=== PATIENT | male | born 1955 | race Caucasian/White ===

== ENCOUNTER 2016-08-09 19:23 | Inpatient (IN) | payer OTHER ==
[~2016-08-09] VITALS: Ht 182.9 cm; Wt 78.6 kg
[~2016-08-09 19:23] MED LIST: ADVAIR 500/501 DISK IH; ADVAIR HFA120 INHALA IH; ADVAIR HFA120 INHALA PO; ADVIL COLD &1 TABLET PO; ALBUTEROL IH; ALBUTEROL SULF8.5 GM IH; ALLERGY RELIE15.8 ML BOTH NARES; ASCORBIC ACID500 M3 PO; ASPIR-LOW81 MG PO; ASPIRIN325 MG PO; Advair HFA 115/21 IH; BAYER ASPIRIN325 MG PO; BUPROPION XL150 MG PO; CARDIZEM CD,CA240 MG PO; CARDIZEM CD240 MG PO; CARDIZEM120 MG PO; CEFDINIR300 MG PO; CEFTIN500 MG PO; CLEOCIN300 MG PO; COUMADIN,JANTO7.5 MG PO; COUMADIN,JANTOVE1 MG PO; COUMADIN1 MG PO; COUMADIN10 MG PO; CYMBALTA60 MG PO; Cardizem CD,Cartia X PO; Ceftin PO; Colace PO; Coumadin Daily Dose PO; DUONEB 2.5-0.5 M3 ML AEROSOL; DUONEB 2.5-0.5 M3 ML IH; ECOTRIN325 MG PO; ECPIRIN325 M1 PO; ERGOCALCIF50000 UNIT PO; Ecotrin PO; FEROSUL325 MG PO; FERROUS SULFAT324 M1 PO; FLEXERIL10 MG PO; FLONASE16 G1 BOTH NARES; FUROSEMIDE40 MG PO; Flexeril PO; GLIPIZIDE ER2.5 MG PO; GLIPIZIDE XL10 MG PO; GLIPIZIDE10 MG PO; GLUCOPHAGE1000 MG PO; GLUCOTROL XL10 MG PO; GLUCOTROL10 MG PO; Glucophage PO; HYCODAN SYRUP5 ML PO; HYDROCHLOROTH12.5 M1 PO; HYDROCODON-ACE1 EAC7 PO; HYDROCODONE-HO473 ML PO; IPRATR-ALBUTEROL3 ML IH; IPRATROPIUM IH; IRON325 M1 PO; KEFLEX500 MG PO; LASIX40 MG PO; LEVAQUIN750 MG PO; LEVEMIR FL100 UNIT/1 SC; LEVEMIR FL100 UNITS/ PO; LEVEMIR FL100 UNITS/ SC; LEVEMIR100 UNIT/2 SC; LEVOFLOXACIN750 MG PO; LO-DOSE ASPIRIN81 M2 PO; LORTAB 5-325 M1 EACH PO; LYRICA100 MG PO; LYRICA150 MG PO; LYRICA75 MG PO; Lasix PO; MAGNESIUM250 MG PO; METFORMIN HCL1000 MG PO; MYCOSTATIN 100,60 ML PO; Micro-K,K-Tab,K-Dur, PO; Miralax, Glycolax PO; NASONEX17 GM NS; NORCO 5/3251 TABLET PO; NOVOLOG 10100 UNITS/ SC; NOVOLOG PE100 UNITS/ SC; NOVOLOG100 UNIT/2 SQ; NOVOLOG100 UNIT/3 SQ; OMEPRAZOLE40 M1 PO; OMNICEF300 MG PO; POTASSIUM-9999 MG PO; PRAVACHOL40 MG PO; PRAVASTATIN SOD40 MG PO; PREDNISONE10 MG PO; PREDNISONE20 MG PO; PREDNISONE5 MG PO; PRILOSEC40 MG PO; PRINIVIL20 MG PO; PROAIR HFA8.5 GM IH; PROVENTIL HFA6.7 GM IH; PROVENTIL,2.5 MG/0.5 AEROSOL; PROVENTIL,2.5 MG/3 M IH; Pravachol PO; Proventil,Ventolin H IH; QVAR 80 MCG IN7.3 GM IH; RANITIDINE HCL150 M1 PO; RANITIDINE HCL150 MG PO; ROBITUSSIN DM118 ML PO; SALINE SPRAY IH; SPIRIVA1 INHALATI IH; TYLENOL REGULA325 MG PO; VENTOLIN HFA18 GM IH; VITAMIN C500 M1 PO; VITAMIN D35000 UNIT PO; VITAMIN D5000 INTUN PO; Vitamin D PO; WARFARIN SODIUM1 MG PO; WARFARIN SODIUM10 MG PO; WELLBUTRIN XL150 MG PO; XARELTO20 MG PO; Xopenex IH; ZANTAC150 M1 PO; ZANTAC150 MG PO; ZESTORETIC 20-1 EAC1 NG; ZESTORETIC 20-1 EAC1 PO; ZESTORETIC,P1 TABLE1 PO; ZESTORETIC,P1 TABLET PO; ZITHROMAX Z-PA250 MG PO; ZOLOFT100 MG PO; Zestoretic,Prinzide PO; Zoloft PO; predniSONE PO
[2016-08-09 20:27] LABS: HEMATOCRIT 39.2 % (38.0-50.0); MCH 26.6 PG (29.0-34.0); MCHC 28.1 G/DL (30.0-36.0); MCV 94.7 FL (86-99); RBC DIS.WIDTH-CV 15.5 % (11.8-14.6); RBC DIS.WIDTH-SD 53.5 % (39-53); RED BLOOD COUNT 4.14 M/uL (4.00-5.50); WHITE BLOOD COUNT 8.7 K/uL (4.1-10.2)
[2016-08-09 20:35] LABS: CHLORIDE 88 mEq/L (99-109); POTASSIUM 4.8 mEq/L (3.7-5.4); SODIUM 137 mEq/L (136-147)
[2016-08-09 20:37] LABS: GLUCOSE 323 mg/dL (70-99)
[2016-08-09 20:38] LABS: ANION GAP 9 MEQ/L (2-14)
[2016-08-09 20:41] LABS: GFR ESTIMATE (CALCULATED) > 59 mL/min/; UREA NITROGEN (BUN) 22 mg/dL (9-23)
[2016-08-09 20:49] LABS: TROP-I INTERPRETATION NEGATIVE; TROPONIN-I 0.03 ng/mL (0.0-0.30)
[2016-08-09 21:10] LABS: MEAN PLAT.VOLUME 11.3 uM^3 (9.0-12.4); PLATELET COUNT 190 K/uL (156-360)
[2016-08-09 21:11] LABS: PLAT.SUFFICIENCY ADEQUATE
[2016-08-09 22:07] LABS: BASE EXCESS 19.6 mEq/L (-3 to +3); BICARBONATE 49.1 mEq/L (22-26); COMMENTS - BLOOD GASES C+A+; DEVICE NC; METHEMOGLOBIN 1.2 % (0-1.5); O2 FLOW 2 L/MIN; PCO2 87 mm Hg (35-45); PO2 64 mm Hg (80-100); SITE RR; TOTAL RESP RATE 16 resp/min; pH 7.36 (7.35-7.45)
[2016-08-09] MEDS ORDERED: PROVENTIL,2.5 MG/3 M IH (22:09)
[2016-08-09] MEDS ORDERED: LITE COAT ASPI325 M1 PO (22:11)
[2016-08-09] MEDS ORDERED: ZANTAC150 MG PO (22:22)
[2016-08-09] MEDS ORDERED: SERTRALINE HCL50 MG PO (22:23)
[2016-08-10 00:40] VITALS: BP 155/80
[2016-08-10 00:57] LABS: POINT-OF-CARE METER ID UU14174225
[2016-08-10 03:35] LABS: HEMATOCRIT 37.3 % (38.0-50.0); MCH 26.4 PG (29.0-34.0); MCHC 28.2 G/DL (30.0-36.0); MEAN PLAT.VOLUME 11.3 uM^3 (9.0-12.4); PLATELET COUNT 175 K/uL (156-360); RBC DIS.WIDTH-CV 15.6 % (11.8-14.6); RBC DIS.WIDTH-SD 53.5 % (39-53); RED BLOOD COUNT 3.97 M/uL (4.00-5.50); WHITE BLOOD COUNT 7.1 K/uL (4.1-10.2)
[2016-08-10 03:36] VITALS: BP 143/86
[2016-08-10 03:45] LABS: CHLORIDE 88 mEq/L (99-109); POTASSIUM 5.3 mEq/L (3.7-5.4); SODIUM 138 mEq/L (136-147)
[2016-08-10 03:48] LABS: GLUCOSE 380 mg/dL (70-99)
[2016-08-10 03:49] LABS: ANION GAP 10 MEQ/L (2-14)
[2016-08-10 03:50] LABS: TOTAL BILIRUBIN 0.6 mg/dL (0.0-1.0)
[2016-08-10 03:51] LABS: ALKALINE PHOSPHATASE 82 IU/L (3-129); GFR ESTIMATE (CALCULATED) > 59 mL/min/
[2016-08-10 03:52] LABS: UREA NITROGEN (BUN) 23 mg/dL (9-23)
[2016-08-10 03:56] LABS: TROP-I INTERPRETATION NEGATIVE; TROPONIN-I 0.03 ng/mL (0.0-0.30)
[2016-08-10 07:30] VITALS: BP 144/79
[2016-08-10 09:13] LABS: TROP-I INTERPRETATION NEGATIVE; TROPONIN-I 0.02 ng/mL (0.0-0.30)
[2016-08-10 11:22] VITALS: BP 127/64
[2016-08-10 14:11] LABS: INTER. NORMALIZED RATIO 1.2; PROTHROMBIN TIME 12.6 (9.2-11.2); PTT 22.2 (25-32)
[2016-08-10 16:24] VITALS: BP 140/63
[2016-08-10 16:54] LABS: TYPE OF FLUID THORACENTESIS
[2016-08-10 17:05] LABS: POINT-OF-CARE METER ID UU14174225
[2016-08-10 17:21] LABS: BODY FLUID LDH 100 IU/L; BODY FLUID PROTEIN 3.1 G/DL
[2016-08-10 17:36] LABS: BODY FLUID EOSINOPHILS 0 % (0-25); BODY FLUID RBC'S 2000 /MM^3 (0-100); BODY FLUID WBC'S 131 /MM^3 (0-500); COMMENT MANY MESOTHELIAL CELLS SEEN; MONONUCLEAR WBC'S 38 %; POLYNUCLEAR WBC'S 62 % (0-25)
[2016-08-10 17:56] LABS: TROP-I INTERPRETATION NEGATIVE; TROPONIN-I 0.05 ng/mL (0.0-0.30)
[2016-08-10 18:05] LABS: ANION GAP 10 MEQ/L (2-14); CHLORIDE 86 MEQ/L (99-109); CREATINE KINASE 60 IU/L (1-294); GFR ESTIMATE (CALCULATED) > 59 mL/min/; POTASSIUM 4.4 MEQ/L (3.7-5.4); SAMPLE HEMOLYSIS CHECK 0; SAMPLE ICTERIC CHECK 0; SAMPLE LIPEMIA CHECK 0; SODIUM 136 MEQ/L (136-147); UREA NITROGEN (BUN) 28 mg/dL (9-23)
[2016-08-10 18:14] LABS: GLUCOSE 131 mg/dL (70-99)
[2016-08-10 19:40] VITALS: BP 127/74; BP 81/49
[2016-08-10 22:14] LABS: GLUCOSE 34 mg/dL (70-99)
[2016-08-10 23:40] LABS: POINT-OF-CARE METER ID UU14174225
[2016-08-11 04:02] VITALS: BP 121/47
[2016-08-11 06:48] LABS: HEMATOCRIT 32.2 % (38.0-50.0); MCH 26.9 PG (29.0-34.0); MCHC 29.2 G/DL (30.0-36.0); MEAN PLAT.VOLUME 11.4 uM^3 (9.0-12.4); PLATELET COUNT 189 K/uL (156-360); RBC DIS.WIDTH-CV 16.2 % (11.8-14.6); RBC DIS.WIDTH-SD 54.4 % (39-53)
[2016-08-11 07:37] VITALS: BP 115/55
[2016-08-11 07:47] LABS: ANION GAP ND MEQ/L (2-14); CARBON DIOXIDE (BICARBONATE) > 40.0 MEQ/L (20-31); CHLORIDE 87 MEQ/L (99-109); GFR ESTIMATE (CALCULATED) 37 mL/min/; GLUCOSE 83 mg/dL (70-99); POTASSIUM 4.9 MEQ/L (3.7-5.4); SAMPLE HEMOLYSIS CHECK 0; SAMPLE ICTERIC CHECK 0; SAMPLE LIPEMIA CHECK 0; SODIUM 135 MEQ/L (136-147); UREA NITROGEN (BUN) 36 mg/dL (9-23)
[2016-08-11 09:52] LABS: BASE EXCESS 20.3 mEq/L (-3 to +3); BICARBONATE 47.3 mEq/L (22-26); CARBOXY HGB 1.7 % (0-5); METHEMOGLOBIN 1.7 % (0-1.5); PO2 65 mm Hg (80-100); pH 7.45 (7.35-7.45)
[2016-08-11 09:53] LABS: COMMENTS - BLOOD GASES NEG A+C+; DEVICE NC; O2 FLOW 54 L/MIN; PCO2 68 mm Hg (35-45); SITE LR; TOTAL RESP RATE 17 resp/min
[2016-08-11 11:15] VITALS: BP 97/53
[2016-08-11 14:03] LABS: POINT-OF-CARE METER ID UU14174225
[2016-08-11 15:15] VITALS: BP 89/52
[2016-08-11 16:36] LABS: POINT-OF-CARE METER ID UU14174225
[2016-08-11 20:20] VITALS: BP 98/49
[2016-08-11 21:21] LABS: POINT-OF-CARE METER ID UU14174225
[2016-08-11 23:41] VITALS: BP 95/52
[2016-08-12 04:00] VITALS: BP 109/60
[2016-08-12 05:59] LABS: HEMATOCRIT 35.3 % (38.0-50.0); MCH 26.6 PG (29.0-34.0); MCHC 29.2 G/DL (30.0-36.0); MCV 91.2 FL (86-99); MEAN PLAT.VOLUME 11.8 uM^3 (9.0-12.4); PLATELET COUNT 210 K/uL (156-360); RBC DIS.WIDTH-CV 16.3 % (11.8-14.6); RBC DIS.WIDTH-SD 54.5 % (39-53); RED BLOOD COUNT 3.87 M/uL (4.00-5.50); WHITE BLOOD COUNT 9.6 K/uL (4.1-10.2)
[2016-08-12 06:26] LABS: ANION GAP 5 MEQ/L (2-14); CHLORIDE 85 MEQ/L (99-109); SAMPLE HEMOLYSIS CHECK 0; SAMPLE ICTERIC CHECK 0; SAMPLE LIPEMIA CHECK 0; SODIUM 130 MEQ/L (136-147); UREA NITROGEN (BUN) 47 mg/dL (9-23)
[2016-08-12 06:27] LABS: GFR ESTIMATE (CALCULATED) 24 mL/min/; GLUCOSE 262 mg/dL (70-99); POTASSIUM 6.8 MEQ/L (3.7-5.4)
[2016-08-12 08:01] VITALS: BP 116/63
[2016-08-12 11:03] VITALS: BP 106/75
[2016-08-12 12:52] LABS: ANION GAP 8 MEQ/L (2-14); CHLORIDE 84 MEQ/L (99-109); GFR ESTIMATE (CALCULATED) 21 mL/min/; GLUCOSE 299 mg/dL (70-99); POTASSIUM 5.8 MEQ/L (3.7-5.4); SAMPLE HEMOLYSIS CHECK 0; SAMPLE ICTERIC CHECK 0; SAMPLE LIPEMIA CHECK 0; SODIUM 130 MEQ/L (136-147); UREA NITROGEN (BUN) 49 mg/dL (9-23)
[2016-08-12 15:32] VITALS: BP 134/67
[2016-08-12 15:50] LABS: ANION GAP 9 MEQ/L (2-14); CHLORIDE 85 MEQ/L (99-109); GFR ESTIMATE (CALCULATED) 20 mL/min/; GLUCOSE 225 mg/dL (70-99); SAMPLE HEMOLYSIS CHECK 0; SAMPLE ICTERIC CHECK 0; SAMPLE LIPEMIA CHECK 0; SODIUM 131 MEQ/L (136-147); UREA NITROGEN (BUN) 51 mg/dL (9-23)
[2016-08-12 15:51] LABS: POTASSIUM 6.1 MEQ/L (3.7-5.4)
[2016-08-12 16:37] LABS: POINT-OF-CARE METER ID UU14174225
[2016-08-12 19:32] VITALS: BP 106/54
[2016-08-12 21:14] LABS: ANION GAP 10 MEQ/L (2-14); CHLORIDE 85 MEQ/L (99-109); GFR ESTIMATE (CALCULATED) 20 mL/min/; SAMPLE HEMOLYSIS CHECK 0; SAMPLE ICTERIC CHECK 0; SAMPLE LIPEMIA CHECK 0; SODIUM 131 MEQ/L (136-147); UREA NITROGEN (BUN) 52 mg/dL (9-23)
[2016-08-12 21:15] LABS: GLUCOSE 108 mg/dL (70-99)
[2016-08-12 22:05] LABS: POINT-OF-CARE METER ID UU14188625
[2016-08-12 23:01] VITALS: BP 104/56
[2016-08-13] VITALS (16 sets, daily range): BP systolic 77–194; BP diastolic 46–80
[2016-08-13 08:23] LABS: UR CREATININE CONCENTRATION 199.2 MG/DL
[2016-08-13 08:57] LABS: BASE EXCESS 10.5 mEq/L (-3 to +3); CARBOXY HGB 2.3 % (0-5); PO2 76 mm Hg (80-100)
[2016-08-13 08:58] LABS: BICARBONATE 39.9 mEq/L (22-26); DEVICE NC; O2 FLOW 4 L/MIN; PCO2 83 mm Hg (35-45); SITE RR; TOTAL RESP RATE 16 resp/min; pH 7.29 (7.35-7.45)
[2016-08-13 08:59] LABS: COMMENTS - BLOOD GASES A+C+
[2016-08-13 09:04] LABS: EOSINOPHIL (%) 0.3 % (0-5); IMMATURE GRANULOCYTE (%) 0.4 % (0.0-0.7); IMMATURE GRANULOCYTE COUNT 0.1 K/uL; INSTRUMENT ABS NEUTROPHIL CT 9.1 K/uL; LYMPHOCYTE COUNT 1.7 K/uL (1.0-2.8); MCH 27.7 PG (29.0-34.0); MCV 92.4 FL (86-99); MEAN PLAT.VOLUME 11.4 uM^3 (9.0-12.4); MONOCYTE (%) 15.5 % (3-12); NEUTROPHIL (%) 70.4 % (45-76); NEUTROPHIL COUNT 9.1 K/uL (1.8-6.4); PLATELET COUNT 193 K/uL (156-360); RBC DIS.WIDTH-CV 16.1 % (11.8-14.6); RBC DIS.WIDTH-SD 54.8 % (39-53); RED BLOOD COUNT 3.68 M/uL (4.00-5.50)
[2016-08-13 09:06] LABS: WHITE BLOOD COUNT 12.9 K/uL (4.1-10.2)
[2016-08-13 09:25] LABS: ANION GAP 9 MEQ/L (2-14); CHLORIDE 85 MEQ/L (99-109); GFR ESTIMATE (CALCULATED) 16 mL/min/; GLUCOSE 78 mg/dL (70-99); MAGNESIUM 2.1 mg/dl (1.3-2.7); POTASSIUM 4.6 MEQ/L (3.7-5.4); SAMPLE HEMOLYSIS CHECK 0; SAMPLE ICTERIC CHECK 0; SAMPLE LIPEMIA CHECK 0; SODIUM 132 MEQ/L (136-147); UREA NITROGEN (BUN) 55 mg/dL (9-23)
[2016-08-13 11:33] LABS: METH RESISTANT S AUREUS PCR NEGATIVE (NEGATIVE)
[2016-08-13 11:34] LABS: PROBE CHECK PASS; SPECIMEN PROCESSING CONTROL PASS
[2016-08-13 12:11] LABS: POINT-OF-CARE METER ID UU13113803
[2016-08-13 12:15] LABS: BASE EXCESS 13.3 mEq/L (-3 to +3); BICARBONATE 40.6 mEq/L (22-26); CARBOXY HGB 2.3 % (0-5); METHEMOGLOBIN 1.8 % (0-1.5)
[2016-08-13 12:16] LABS: COMMENTS - BLOOD GASES C+A-N/A; DEVICE 980 VENTILATOR; FI02 60 %; MECHANICAL RATE 18 resp/min; MODE AC; PCO2 67 mm Hg (35-45); PEEP 10 CM/H20; PO2 53 mm Hg (80-100); SITE LR; TIDAL VOLUME 500 ML; TOTAL RESP RATE 18 resp/min; pH 7.39 (7.35-7.45)
[2016-08-13 13:50] LABS: EOSINOPHIL (%) 0.1 % (0-5); HEMATOCRIT 33.4 % (38.0-50.0); IMMATURE GRANULOCYTE (%) 0.5 % (0.0-0.7); IMMATURE GRANULOCYTE COUNT 0.1 K/uL; INSTRUMENT ABS NEUTROPHIL CT 10.8 K/uL; LYMPHOCYTE COUNT 0.5 K/uL (1.0-2.8); MCH 27.4 PG (29.0-34.0); MCHC 30.5 G/DL (30.0-36.0); MCV 89.8 FL (86-99); MEAN PLAT.VOLUME 11.1 uM^3 (9.0-12.4); MONOCYTE (%) 5.6 % (3-12); MONOCYTE COUNT 0.7 K/uL (0-0.8); NEUTROPHIL (%) 89.3 % (45-76); NEUTROPHIL COUNT 10.8 K/uL (1.8-6.4); PLATELET COUNT 162 K/uL (156-360); RBC DIS.WIDTH-CV 16.2 % (11.8-14.6); RBC DIS.WIDTH-SD 53.6 % (39-53); RED BLOOD COUNT 3.72 M/uL (4.00-5.50); WHITE BLOOD COUNT 12.1 K/uL (4.1-10.2)
[2016-08-13 14:17] LABS: ANION GAP 11 MEQ/L (2-14); CHLORIDE 85 MEQ/L (99-109); GFR ESTIMATE (CALCULATED) 16 mL/min/; GLUCOSE 142 mg/dL (70-99); POTASSIUM 4.8 MEQ/L (3.7-5.4); SAMPLE HEMOLYSIS CHECK 0; SAMPLE ICTERIC CHECK 0; SAMPLE LIPEMIA CHECK 0; SODIUM 131 MEQ/L (136-147); UREA NITROGEN (BUN) 56 mg/dL (9-23)
[2016-08-13 15:35] LABS: EOSINOPHIL (%) 0.1 % (0-5); HEMATOCRIT 32.5 % (38.0-50.0); IMMATURE GRANULOCYTE (%) 0.5 % (0.0-0.7); IMMATURE GRANULOCYTE COUNT 0.1 K/uL; INSTRUMENT ABS NEUTROPHIL CT 9.9 K/uL; LYMPHOCYTE COUNT 0.5 K/uL (1.0-2.8); MCH 26.7 PG (29.0-34.0); MCHC 30.2 G/DL (30.0-36.0); MCV 88.6 FL (86-99); MEAN PLAT.VOLUME 11.6 uM^3 (9.0-12.4); MONOCYTE (%) 4.2 % (3-12); MONOCYTE COUNT 0.5 K/uL (0-0.8); NEUTROPHIL (%) 90.5 % (45-76); NEUTROPHIL COUNT 9.9 K/uL (1.8-6.4); PLATELET COUNT 151 K/uL (156-360); RBC DIS.WIDTH-CV 15.9 % (11.8-14.6); RBC DIS.WIDTH-SD 51.7 % (39-53); RED BLOOD COUNT 3.67 M/uL (4.00-5.50); WHITE BLOOD COUNT 10.9 K/uL (4.1-10.2)
[2016-08-13 15:46] LABS: INTER. NORMALIZED RATIO 1.2; PROTHROMBIN TIME 12.5 (9.2-11.2); PTT 26.4 (25-32)
[2016-08-13 17:52] LABS: POINT-OF-CARE METER ID UU13113803
[2016-08-13 18:17] LABS: BASE EXCESS 11.2 mEq/L (-3 to +3); BICARBONATE 36.8 mEq/L (22-26); CARBOXY HGB 1.7 % (0-5); METHEMOGLOBIN 1.4 % (0-1.5); PCO2 53 mm Hg (35-45); PO2 72 mm Hg (80-100); SITE LEFT A LINE; pH 7.45 (7.35-7.45)
[2016-08-13 18:18] LABS: EOSINOPHIL (%) 0.1 % (0-5); HEMATOCRIT 32.9 % (38.0-50.0); IMMATURE GRANULOCYTE (%) 0.5 % (0.0-0.7); IMMATURE GRANULOCYTE COUNT 0.1 K/uL; INSTRUMENT ABS NEUTROPHIL CT 8.9 K/uL; LYMPHOCYTE COUNT 0.5 K/uL (1.0-2.8); MCH 27.4 PG (29.0-34.0); MCHC 31.3 G/DL (30.0-36.0); MCV 87.5 FL (86-99); MEAN PLAT.VOLUME 10.8 uM^3 (9.0-12.4); MONOCYTE (%) 3.2 % (3-12); MONOCYTE COUNT 0.3 K/uL (0-0.8); NEUTROPHIL (%) 91.4 % (45-76); NEUTROPHIL COUNT 8.9 K/uL (1.8-6.4); PLATELET COUNT 136 K/uL (156-360); RBC DIS.WIDTH-CV 15.9 % (11.8-14.6); RBC DIS.WIDTH-SD 51.3 % (39-53); RED BLOOD COUNT 3.76 M/uL (4.00-5.50); WHITE BLOOD COUNT 9.7 K/uL (4.1-10.2)
[2016-08-13 18:18] LABS: DEVICE 980; FI02 60 %; MECHANICAL RATE 18 resp/min; MODE A/C; PEEP 12 CM/H20; TIDAL VOLUME 500 ML
[2016-08-13 18:43] LABS: TROP-I INTERPRETATION INDETERMINATE; TROPONIN-I 0.41 ng/mL (0.0-0.30)
[2016-08-13 18:44] LABS: ANION GAP 11 MEQ/L (2-14); CHLORIDE 89 MEQ/L (99-109); GFR ESTIMATE (CALCULATED) 19 mL/min/; GLUCOSE 116 mg/dL (70-99); POTASSIUM 4.8 MEQ/L (3.7-5.4); SAMPLE HEMOLYSIS CHECK 0; SAMPLE ICTERIC CHECK 0; SAMPLE LIPEMIA CHECK 0; SODIUM 131 MEQ/L (136-147); UREA NITROGEN (BUN) 52 mg/dL (9-23)
[2016-08-14 00:24] LABS: EOSINOPHIL (%) 0 % (0-5); HEMATOCRIT 35.5 % (38.0-50.0); IMMATURE GRANULOCYTE (%) 0.7 % (0.0-0.7); IMMATURE GRANULOCYTE COUNT 0.1 K/uL; INSTRUMENT ABS NEUTROPHIL CT 8.4 K/uL; LYMPHOCYTE COUNT 0.5 K/uL (1.0-2.8); MCH 26.6 PG (29.0-34.0); MCHC 30.4 G/DL (30.0-36.0); MCV 87.4 FL (86-99); MEAN PLAT.VOLUME 11.4 uM^3 (9.0-12.4); MONOCYTE (%) 2.4 % (3-12); MONOCYTE COUNT 0.2 K/uL (0-0.8); NEUTROPHIL (%) 91.9 % (45-76); NEUTROPHIL COUNT 8.4 K/uL (1.8-6.4); PLATELET COUNT 162 K/uL (156-360); RBC DIS.WIDTH-CV 15.9 % (11.8-14.6); RBC DIS.WIDTH-SD 51.5 % (39-53); RED BLOOD COUNT 4.06 M/uL (4.00-5.50); WHITE BLOOD COUNT 9.1 K/uL (4.1-10.2)
[2016-08-14 00:26] LABS: POINT-OF-CARE METER ID UU13113803
[2016-08-14 00:36] LABS: CHLORIDE 95 mEq/L (99-109); POTASSIUM 5.1 mEq/L (3.7-5.4); SODIUM 134 mEq/L (136-147)
[2016-08-14 00:37] LABS: MAGNESIUM 2.1 mg/dL (1.3-2.7)
[2016-08-14 00:39] LABS: GLUCOSE 110 mg/dL (70-99)
[2016-08-14 00:40] LABS: ANION GAP 12 MEQ/L (2-14)
[2016-08-14 00:42] LABS: GFR ESTIMATE (CALCULATED) 26 mL/min/
[2016-08-14 00:43] LABS: UREA NITROGEN (BUN) 41 mg/dL (9-23)
[2016-08-14 00:46] LABS: TROP-I INTERPRETATION INDETERMINATE; TROPONIN-I 0.36 ng/mL (0.0-0.30)
[2016-08-14 05:51] LABS: POINT-OF-CARE METER ID UU13113803
[2016-08-14 06:24] LABS: EOSINOPHIL (%) 0 % (0-5); HEMATOCRIT 32.4 % (38.0-50.0); IMMATURE GRANULOCYTE (%) 0.5 % (0.0-0.7); INSTRUMENT ABS NEUTROPHIL CT 7.6 K/uL; LYMPHOCYTE COUNT 0.5 K/uL (1.0-2.8); MCHC 31.2 G/DL (30.0-36.0); MCV 86.6 FL (86-99); MEAN PLAT.VOLUME 11.7 uM^3 (9.0-12.4); MONOCYTE (%) 4.7 % (3-12); MONOCYTE COUNT 0.4 K/uL (0-0.8); NEUTROPHIL (%) 88.7 % (45-76); NEUTROPHIL COUNT 7.6 K/uL (1.8-6.4); PLATELET COUNT 181 K/uL (156-360); RBC DIS.WIDTH-CV 16.1 % (11.8-14.6); RBC DIS.WIDTH-SD 51.3 % (39-53); RED BLOOD COUNT 3.74 M/uL (4.00-5.50); WHITE BLOOD COUNT 8.6 K/uL (4.1-10.2)
[2016-08-14 06:53] LABS: TROP-I INTERPRETATION NEGATIVE; TROPONIN-I 0.25 ng/mL (0.0-0.30)
[2016-08-14 08:10] LABS: ANION GAP 9 MEQ/L (2-14); CHLORIDE 96 MEQ/L (99-109); MAGNESIUM 1.9 mg/dl (1.3-2.7); POTASSIUM 4.4 MEQ/L (3.7-5.4); SAMPLE HEMOLYSIS CHECK 0; SAMPLE ICTERIC CHECK 0; SAMPLE LIPEMIA CHECK 0; SODIUM 134 MEQ/L (136-147)
[2016-08-14 08:17] LABS: GFR ESTIMATE (CALCULATED) 35 mL/min/; GLUCOSE 115 mg/dL (70-99); UREA NITROGEN (BUN) 34 mg/dL (9-23)
[2016-08-14 12:10] LABS: EOSINOPHIL (%) 0 % (0-5); HEMATOCRIT 33.7 % (38.0-50.0); IMMATURE GRANULOCYTE (%) 0.4 % (0.0-0.7); IMMATURE GRANULOCYTE COUNT 0.1 K/uL; INSTRUMENT ABS NEUTROPHIL CT 10.5 K/uL; LYMPHOCYTE COUNT 0.4 K/uL (1.0-2.8); MCH 26.6 PG (29.0-34.0); MCV 88.7 FL (86-99); MEAN PLAT.VOLUME 10.8 uM^3 (9.0-12.4); MONOCYTE (%) 6.4 % (3-12); MONOCYTE COUNT 0.8 K/uL (0-0.8); NEUTROPHIL (%) 89.5 % (45-76); NEUTROPHIL COUNT 10.5 K/uL (1.8-6.4); PLATELET COUNT 179 K/uL (156-360); RBC DIS.WIDTH-CV 15.9 % (11.8-14.6)
[2016-08-14 12:14] LABS: WHITE BLOOD COUNT 11.8 K/uL (4.1-10.2)
[2016-08-14 12:18] LABS: POINT-OF-CARE METER ID UU13113803
[2016-08-14 12:33] LABS: TROP-I INTERPRETATION NEGATIVE; TROPONIN-I 0.26 ng/mL (0.0-0.30)
[2016-08-14 12:35] LABS: ANION GAP 10 MEQ/L (2-14); CHLORIDE 95 MEQ/L (99-109); GFR ESTIMATE (CALCULATED) 39 mL/min/; GLUCOSE 131 mg/dL (70-99); POTASSIUM 4.6 MEQ/L (3.7-5.4); SAMPLE HEMOLYSIS CHECK 0; SAMPLE ICTERIC CHECK 0; SAMPLE LIPEMIA CHECK 0; SODIUM 133 MEQ/L (136-147); UREA NITROGEN (BUN) 30 mg/dL (9-23)
[2016-08-14 12:40] LABS: MAGNESIUM 2.3 mg/dl (1.3-2.7)
[2016-08-14 18:25] LABS: EOSINOPHIL (%) 0 % (0-5); HEMATOCRIT 33.5 % (38.0-50.0); IMMATURE GRANULOCYTE (%) 0.6 % (0.0-0.7); IMMATURE GRANULOCYTE COUNT 0.1 K/uL; INSTRUMENT ABS NEUTROPHIL CT 11.7 K/uL; LYMPHOCYTE COUNT 0.5 K/uL (1.0-2.8); MCHC 30.1 G/DL (30.0-36.0); MCV 89.6 FL (86-99); MEAN PLAT.VOLUME 11.8 uM^3 (9.0-12.4); MONOCYTE (%) 6.7 % (3-12); MONOCYTE COUNT 0.9 K/uL (0-0.8); NEUTROPHIL (%) 89.2 % (45-76); NEUTROPHIL COUNT 11.7 K/uL (1.8-6.4); PLATELET COUNT 196 K/uL (156-360); RBC DIS.WIDTH-CV 16.3 % (11.8-14.6); RBC DIS.WIDTH-SD 53.6 % (39-53); RED BLOOD COUNT 3.74 M/uL (4.00-5.50); WHITE BLOOD COUNT 13.1 K/uL (4.1-10.2)
[2016-08-14 18:50] LABS: ANION GAP 7 MEQ/L (2-14); CHLORIDE 97 MEQ/L (99-109); GFR ESTIMATE (CALCULATED) 44 mL/min/; GLUCOSE 137 mg/dL (70-99); MAGNESIUM 2.3 mg/dl (1.3-2.7); POTASSIUM 5.3 MEQ/L (3.7-5.4); SAMPLE HEMOLYSIS CHECK 1; SAMPLE ICTERIC CHECK 0; SAMPLE LIPEMIA CHECK 0; SODIUM 133 MEQ/L (136-147); UREA NITROGEN (BUN) 27 mg/dL (9-23)
[2016-08-15 00:49] LABS: EOSINOPHIL (%) 0 % (0-5); HEMATOCRIT 34.7 % (38.0-50.0); IMMATURE GRANULOCYTE (%) 0.5 % (0.0-0.7); IMMATURE GRANULOCYTE COUNT 0.1 K/uL; INSTRUMENT ABS NEUTROPHIL CT 11.4 K/uL; LYMPHOCYTE COUNT 0.4 K/uL (1.0-2.8); MCH 26.8 PG (29.0-34.0); MCHC 29.7 G/DL (30.0-36.0); MCV 90.1 FL (86-99); MEAN PLAT.VOLUME 11.2 uM^3 (9.0-12.4); MONOCYTE (%) 7.1 % (3-12); MONOCYTE COUNT 0.9 K/uL (0-0.8); NEUTROPHIL COUNT 11.4 K/uL (1.8-6.4); PLATELET COUNT 179 K/uL (156-360); RBC DIS.WIDTH-CV 16.2 % (11.8-14.6); RBC DIS.WIDTH-SD 53.7 % (39-53); RED BLOOD COUNT 3.85 M/uL (4.00-5.50); WHITE BLOOD COUNT 12.8 K/uL (4.1-10.2)
[2016-08-15 00:58] LABS: CHLORIDE 101 mEq/L (99-109); MAGNESIUM 2.1 mg/dL (1.3-2.7); POTASSIUM 4.7 mEq/L (3.7-5.4); SODIUM 136 mEq/L (136-147)
[2016-08-15 01:00] LABS: GLUCOSE 180 mg/dL (70-99)
[2016-08-15 01:02] LABS: ANION GAP 11 MEQ/L (2-14); TOTAL BILIRUBIN 0.5 mg/dL (0.0-1.0)
[2016-08-15 01:04] LABS: ALKALINE PHOSPHATASE 63 IU/L (3-129); GFR ESTIMATE (CALCULATED) 47 mL/min/
[2016-08-15 01:05] LABS: UREA NITROGEN (BUN) 26 mg/dL (9-23)
[2016-08-15 01:06] LABS: DIRECT BILIRUBIN 0.3 mg/dL (0.0-0.3)
[2016-08-15 05:33] LABS: POINT-OF-CARE METER ID UU13113803
[2016-08-15 06:46] LABS: EOSINOPHIL (%) 0 % (0-5); HEMATOCRIT 33.7 % (38.0-50.0); IMMATURE GRANULOCYTE (%) 0.6 % (0.0-0.7); IMMATURE GRANULOCYTE COUNT 0.1 K/uL; INSTRUMENT ABS NEUTROPHIL CT 11.6 K/uL; LYMPHOCYTE COUNT 0.5 K/uL (1.0-2.8); MCHC 29.4 G/DL (30.0-36.0); MCV 92.1 FL (86-99); MEAN PLAT.VOLUME 11.7 uM^3 (9.0-12.4); MONOCYTE (%) 7.6 % (3-12); NEUTROPHIL (%) 88.1 % (45-76); NEUTROPHIL COUNT 11.6 K/uL (1.8-6.4); PLATELET COUNT 180 K/uL (156-360); RBC DIS.WIDTH-CV 16.3 % (11.8-14.6); RBC DIS.WIDTH-SD 55.5 % (39-53); RED BLOOD COUNT 3.66 M/uL (4.00-5.50); WHITE BLOOD COUNT 13.1 K/uL (4.1-10.2)
[2016-08-15 07:19] LABS: ANION GAP 10 MEQ/L (2-14); CHLORIDE 98 MEQ/L (99-109); GFR ESTIMATE (CALCULATED) 55 mL/min/; GLUCOSE 180 mg/dL (70-99); MAGNESIUM 2.2 mg/dl (1.3-2.7); POTASSIUM 4.7 MEQ/L (3.7-5.4); SAMPLE HEMOLYSIS CHECK 0; SAMPLE ICTERIC CHECK 0; SAMPLE LIPEMIA CHECK 0; SODIUM 134 MEQ/L (136-147); UREA NITROGEN (BUN) 24 mg/dL (9-23)
[2016-08-15 09:00] VITALS: BP 110/96
[2016-08-15 11:43] LABS: METHEMOGLOBIN 1.2 % (0-1.5); PO2 74 mm Hg (80-100)
[2016-08-15 11:44] LABS: BICARBONATE 25.1 mEq/L (22-26); COMMENTS - BLOOD GASES C+ANA; DEVICE 980 PB; FI02 30 %; MODE TC; PCO2 60 mm Hg (35-45); PEEP 5 CM/H20; SITE ALINE; TOTAL RESP RATE 10 resp/min; pH 7.23 (7.35-7.45)
[2016-08-15 12:10] LABS: POINT-OF-CARE METER ID UU13113803
[2016-08-15 12:22] LABS: EOSINOPHIL (%) 0 % (0-5); HEMATOCRIT 33.6 % (38.0-50.0); IMMATURE GRANULOCYTE (%) 0.7 % (0.0-0.7); IMMATURE GRANULOCYTE COUNT 0.1 K/uL; INSTRUMENT ABS NEUTROPHIL CT 11.4 K/uL; LYMPHOCYTE COUNT 0.6 K/uL (1.0-2.8); MCH 27.4 PG (29.0-34.0); MCHC 29.8 G/DL (30.0-36.0); MCV 92.1 FL (86-99); MEAN PLAT.VOLUME 11.5 uM^3 (9.0-12.4); MONOCYTE (%) 9.5 % (3-12); MONOCYTE COUNT 1.3 K/uL (0-0.8); NEUTROPHIL (%) 85.4 % (45-76); NEUTROPHIL COUNT 11.4 K/uL (1.8-6.4); PLATELET COUNT 190 K/uL (156-360); RBC DIS.WIDTH-CV 16.3 % (11.8-14.6); RBC DIS.WIDTH-SD 55.6 % (39-53); RED BLOOD COUNT 3.65 M/uL (4.00-5.50); WHITE BLOOD COUNT 13.4 K/uL (4.1-10.2)
[2016-08-15 12:52] LABS: ANION GAP 8 MEQ/L (2-14); CHLORIDE 100 MEQ/L (99-109); GFR ESTIMATE (CALCULATED) > 59 mL/min/; GLUCOSE 194 mg/dL (70-99); MAGNESIUM 2.3 mg/dl (1.3-2.7); POTASSIUM 4.6 MEQ/L (3.7-5.4); SAMPLE HEMOLYSIS CHECK 0; SAMPLE ICTERIC CHECK 0; SAMPLE LIPEMIA CHECK 0; SODIUM 133 MEQ/L (136-147); UREA NITROGEN (BUN) 24 mg/dL (9-23)
[2016-08-15 18:03] LABS: EOSINOPHIL (%) 0 % (0-5); HEMATOCRIT 33.6 % (38.0-50.0); IMMATURE GRANULOCYTE (%) 0.6 % (0.0-0.7); IMMATURE GRANULOCYTE COUNT 0.1 K/uL; INSTRUMENT ABS NEUTROPHIL CT 10.6 K/uL; LYMPHOCYTE COUNT 0.5 K/uL (1.0-2.8); MCH 26.2 PG (29.0-34.0); MCHC 28.9 G/DL (30.0-36.0); MCV 90.8 FL (86-99); MEAN PLAT.VOLUME 11.4 uM^3 (9.0-12.4); MONOCYTE (%) 8.5 % (3-12); NEUTROPHIL COUNT 10.6 K/uL (1.8-6.4); PLATELET COUNT 171 K/uL (156-360); RBC DIS.WIDTH-CV 16.3 % (11.8-14.6); RBC DIS.WIDTH-SD 54.1 % (39-53); WHITE BLOOD COUNT 12.2 K/uL (4.1-10.2)
[2016-08-15 18:16] LABS: CHLORIDE 104 mEq/L (99-109); POTASSIUM 4.7 mEq/L (3.7-5.4); SODIUM 137 mEq/L (136-147)
[2016-08-15 18:17] LABS: MAGNESIUM 2.3 mg/dL (1.3-2.7)
[2016-08-15 18:18] LABS: GLUCOSE 197 mg/dL (70-99)
[2016-08-15 18:19] LABS: ANION GAP 11 MEQ/L (2-14)
[2016-08-15 18:22] LABS: GFR ESTIMATE (CALCULATED) > 59 mL/min/; POINT-OF-CARE METER ID UU13113803
[2016-08-15 18:23] LABS: UREA NITROGEN (BUN) 25 mg/dL (9-23)
[2016-08-15 21:00] VITALS: BP 118/68
[2016-08-16 00:33] LABS: EOSINOPHIL (%) 0 % (0-5); IMMATURE GRANULOCYTE (%) 0.8 % (0.0-0.7); IMMATURE GRANULOCYTE COUNT 0.1 K/uL; INSTRUMENT ABS NEUTROPHIL CT 11.3 K/uL; LYMPHOCYTE COUNT 0.5 K/uL (1.0-2.8); MCH 26.7 PG (29.0-34.0); MCHC 29.4 G/DL (30.0-36.0); MCV 90.7 FL (86-99); MONOCYTE (%) 8.5 % (3-12); MONOCYTE COUNT 1.1 K/uL (0-0.8); NEUTROPHIL (%) 86.7 % (45-76); NEUTROPHIL COUNT 11.3 K/uL (1.8-6.4); PLATELET COUNT 168 K/uL (156-360); RBC DIS.WIDTH-CV 16.2 % (11.8-14.6); RBC DIS.WIDTH-SD 53.1 % (39-53); RED BLOOD COUNT 3.75 M/uL (4.00-5.50); WHITE BLOOD COUNT 13.1 K/uL (4.1-10.2)
[2016-08-16 00:45] LABS: CHLORIDE 104 mEq/L (99-109); POTASSIUM 4.7 mEq/L (3.7-5.4); SODIUM 137 mEq/L (136-147)
[2016-08-16 00:46] LABS: MAGNESIUM 2.4 mg/dL (1.3-2.7)
[2016-08-16 00:47] LABS: GLUCOSE 190 mg/dL (70-99)
[2016-08-16 00:48] LABS: ANION GAP 11 MEQ/L (2-14)
[2016-08-16 00:49] LABS: POINT-OF-CARE METER ID UU14174217; POINT-OF-CARE USER ID RADDRS44
[2016-08-16 00:51] LABS: GFR ESTIMATE (CALCULATED) > 59 mL/min/
[2016-08-16 00:52] LABS: UREA NITROGEN (BUN) 26 mg/dL (9-23)
[2016-08-16 05:31] LABS: CHLORIDE 106 mEq/L (99-109); POTASSIUM 4.8 mEq/L (3.7-5.4); SODIUM 138 mEq/L (136-147)
[2016-08-16 05:32] LABS: MAGNESIUM 2.6 mg/dL (1.3-2.7)
[2016-08-16 05:33] LABS: EOSINOPHIL (%) 0 % (0-5); IMMATURE GRANULOCYTE (%) 0.6 % (0.0-0.7); IMMATURE GRANULOCYTE COUNT 0.1 K/uL; INSTRUMENT ABS NEUTROPHIL CT 12.1 K/uL; LYMPHOCYTE COUNT 0.6 K/uL (1.0-2.8); MCH 26.8 PG (29.0-34.0); MCHC 29.4 G/DL (30.0-36.0); MCV 90.9 FL (86-99); MEAN PLAT.VOLUME 11.4 uM^3 (9.0-12.4); MONOCYTE (%) 8.9 % (3-12); MONOCYTE COUNT 1.2 K/uL (0-0.8); NEUTROPHIL (%) 86.2 % (45-76); NEUTROPHIL COUNT 12.1 K/uL (1.8-6.4); PLATELET COUNT 198 K/uL (156-360); RBC DIS.WIDTH-CV 16.3 % (11.8-14.6); RBC DIS.WIDTH-SD 54.8 % (39-53); RED BLOOD COUNT 3.85 M/uL (4.00-5.50)
[2016-08-16 06:00] LABS: POINT-OF-CARE USER ID RADDRS44
[2016-08-16 07:19] LABS: GFR ESTIMATE (CALCULATED) > 59 mL/min/; GLUCOSE 182 mg/dL (70-99); UREA NITROGEN (BUN) 25 mg/dL (9-23)
[2016-08-16 09:46] LABS: BASE EXCESS -2.3 mEq/L (-3 to +3); BICARBONATE 25.7 mEq/L (22-26); CARBOXY HGB 2.1 % (0-5); METHEMOGLOBIN 1.5 % (0-1.5); PCO2 60 mm Hg (35-45); PO2 77 mm Hg (80-100)
[2016-08-16 09:47] LABS: COMMENTS - BLOOD GASES C+ANA; SITE ALINE; pH 7.24 (7.35-7.45)
[2016-08-16 09:48] LABS: DEVICE 980 PB; FI02 30 %; MODE TC; TOTAL RESP RATE 11 resp/min
[2016-08-16 11:00] VITALS: BP 151/77
[2016-08-16 13:50] LABS: EOSINOPHIL (%) 0.1 % (0-5); HEMATOCRIT 34.1 % (38.0-50.0); IMMATURE GRANULOCYTE (%) 0.4 % (0.0-0.7); IMMATURE GRANULOCYTE COUNT 0.1 K/uL; INSTRUMENT ABS NEUTROPHIL CT 11.1 K/uL; LYMPHOCYTE COUNT 0.5 K/uL (1.0-2.8); MCH 26.8 PG (29.0-34.0); MCV 92.4 FL (86-99); MEAN PLAT.VOLUME 11.3 uM^3 (9.0-12.4); MONOCYTE (%) 8.7 % (3-12); MONOCYTE COUNT 1.1 K/uL (0-0.8); NEUTROPHIL COUNT 11.1 K/uL (1.8-6.4); PLATELET COUNT 161 K/uL (156-360); RBC DIS.WIDTH-CV 16.4 % (11.8-14.6); RBC DIS.WIDTH-SD 55.6 % (39-53); RED BLOOD COUNT 3.69 M/uL (4.00-5.50); WHITE BLOOD COUNT 12.8 K/uL (4.1-10.2)
[2016-08-16 14:20] LABS: ANION GAP 11 MEQ/L (2-14); CHLORIDE 102 MEQ/L (99-109); GFR ESTIMATE (CALCULATED) > 59 mL/min/; GLUCOSE 206 mg/dL (70-99); MAGNESIUM 2.6 mg/dl (1.3-2.7); SAMPLE HEMOLYSIS CHECK 0; SAMPLE ICTERIC CHECK 0; SAMPLE LIPEMIA CHECK 0; SODIUM 135 MEQ/L (136-147); UREA NITROGEN (BUN) 27 mg/dL (9-23)
[2016-08-16 17:00] LABS: BASE EXCESS -1.1 mEq/L (-3 to +3); BICARBONATE 24.8 mEq/L (22-26); CARBOXY HGB 2.1 % (0-5); METHEMOGLOBIN 1.4 % (0-1.5); PO2 91 mm Hg (80-100)
[2016-08-16 17:01] LABS: COMMENTS - BLOOD GASES C+ANA; FI02 30 %; PCO2 46 mm Hg (35-45); SITE ALINE; pH 7.34 (7.35-7.45)
[2016-08-16 17:02] LABS: DEVICE 980 PB; INSPIRATION TIME 0.8 seconds; MECHANICAL RATE 14 resp/min; MODE ACPC; PEEP 5 CM/H20; PRESSURE CONTROL VENTILATION 15 CM H20; TOTAL RESP RATE 18 resp/min
[2016-08-16 18:06] LABS: EOSINOPHIL (%) 0.2 % (0-5); HEMATOCRIT 32.8 % (38.0-50.0); IMMATURE GRANULOCYTE (%) 0.4 % (0.0-0.7); IMMATURE GRANULOCYTE COUNT 0.1 K/uL; INSTRUMENT ABS NEUTROPHIL CT 9.6 K/uL; LYMPHOCYTE COUNT 0.9 K/uL (1.0-2.8); MCH 27.2 PG (29.0-34.0); MCHC 29.9 G/DL (30.0-36.0); MCV 91.1 FL (86-99); MEAN PLAT.VOLUME 11.3 uM^3 (9.0-12.4); MONOCYTE (%) 10.5 % (3-12); MONOCYTE COUNT 1.3 K/uL (0-0.8); NEUTROPHIL (%) 80.9 % (45-76); NEUTROPHIL COUNT 9.6 K/uL (1.8-6.4); PLATELET COUNT 162 K/uL (156-360); RBC DIS.WIDTH-CV 16.3 % (11.8-14.6); RBC DIS.WIDTH-SD 55.4 % (39-53); WHITE BLOOD COUNT 11.9 K/uL (4.1-10.2)
[2016-08-16 18:08] LABS: POINT-OF-CARE METER ID UU14162636
[2016-08-16 18:31] LABS: ANION GAP 10 MEQ/L (2-14); CHLORIDE 102 MEQ/L (99-109); GFR ESTIMATE (CALCULATED) > 59 mL/min/; GLUCOSE 285 mg/dL (70-99); MAGNESIUM 2.5 mg/dl (1.3-2.7); POTASSIUM 4.8 MEQ/L (3.7-5.4); SAMPLE HEMOLYSIS CHECK 0; SAMPLE ICTERIC CHECK 0; SAMPLE LIPEMIA CHECK 0; SODIUM 134 MEQ/L (136-147); UREA NITROGEN (BUN) 30 mg/dL (9-23)
[2016-08-17 00:51] LABS: HEMATOCRIT 33.3 % (38.0-50.0); MCH 26.5 PG (29.0-34.0); MCHC 29.4 G/DL (30.0-36.0); MEAN PLAT.VOLUME 11.6 uM^3 (9.0-12.4); PLATELET COUNT 156 K/uL (156-360); RBC DIS.WIDTH-CV 16.4 % (11.8-14.6); RBC DIS.WIDTH-SD 53.6 % (39-53); WHITE BLOOD COUNT 11.8 K/uL (4.1-10.2)
[2016-08-17 00:57] LABS: CHLORIDE 106 mEq/L (99-109); POTASSIUM 4.5 mEq/L (3.7-5.4)
[2016-08-17 00:58] LABS: SODIUM 136 mEq/L (136-147)
[2016-08-17 01:00] LABS: GLUCOSE 220 mg/dL (70-99)
[2016-08-17 01:01] LABS: ANION GAP 8 MEQ/L (2-14)
[2016-08-17 01:04] LABS: UREA NITROGEN (BUN) 27 mg/dL (9-23)
[2016-08-17 01:15] LABS: MAGNESIUM 2.2 mg/dL (1.3-2.7)
[2016-08-17 01:25] LABS: GFR ESTIMATE (CALCULATED) > 59 mL/min/
[2016-08-17 06:36] LABS: POINT-OF-CARE METER ID UU14162636
[2016-08-17 06:50] LABS: CHLORIDE 107 mEq/L (99-109); POTASSIUM 4.8 mEq/L (3.7-5.4); SODIUM 137 mEq/L (136-147)
[2016-08-17 06:51] LABS: MAGNESIUM 2.4 mg/dL (1.3-2.7)
[2016-08-17 06:52] LABS: GLUCOSE 288 mg/dL (70-99)
[2016-08-17 06:53] LABS: ANION GAP 9 MEQ/L (2-14)
[2016-08-17 06:56] LABS: GFR ESTIMATE (CALCULATED) > 59 mL/min/
[2016-08-17 06:57] LABS: UREA NITROGEN (BUN) 27 mg/dL (9-23)
[2016-08-17 07:13] LABS: HEMATOCRIT 33.3 % (38.0-50.0); MCH 26.7 PG (29.0-34.0); MCHC 29.4 G/DL (30.0-36.0); MCV 90.7 FL (86-99); PLATELET COUNT 140 K/uL (156-360); RBC DIS.WIDTH-CV 16.3 % (11.8-14.6); RBC DIS.WIDTH-SD 54.4 % (39-53); RED BLOOD COUNT 3.67 M/uL (4.00-5.50); WHITE BLOOD COUNT 10.3 K/uL (4.1-10.2)
[2016-08-17 09:18] LABS: BASE EXCESS -1.4 mEq/L (-3 to +3); BICARBONATE 25.2 mEq/L (22-26); CARBOXY HGB 2.1 % (0-5); COMMENTS - BLOOD GASES NAC+; DEVICE PB 980; FI02 30 %; METHEMOGLOBIN 1.7 % (0-1.5); MODE SPONT TC; PCO2 50 mm Hg (35-45); PEEP 5 CM/H20; PO2 97 mm Hg (80-100); SITE ALINE; TOTAL RESP RATE 15 resp/min; pH 7.31 (7.35-7.45)
[2016-08-17 12:06] LABS: POINT-OF-CARE METER ID UU13113731
[2016-08-17 12:10] LABS: HEMATOCRIT 34.4 % (38.0-50.0); MCH 26.6 PG (29.0-34.0); MCHC 29.4 G/DL (30.0-36.0); MCV 90.8 FL (86-99); MEAN PLAT.VOLUME 11.3 uM^3 (9.0-12.4); PLATELET COUNT 138 K/uL (156-360); RBC DIS.WIDTH-CV 16.3 % (11.8-14.6); RBC DIS.WIDTH-SD 54.9 % (39-53); RED BLOOD COUNT 3.79 M/uL (4.00-5.50); WHITE BLOOD COUNT 10.3 K/uL (4.1-10.2)
[2016-08-17 12:34] LABS: ANION GAP 9 MEQ/L (2-14); CHLORIDE 105 MEQ/L (99-109); GFR ESTIMATE (CALCULATED) > 59 mL/min/; GLUCOSE 217 mg/dL (70-99); MAGNESIUM 2.5 mg/dl (1.3-2.7); POTASSIUM 4.8 MEQ/L (3.7-5.4); SAMPLE HEMOLYSIS CHECK 0; SAMPLE ICTERIC CHECK 0; SAMPLE LIPEMIA CHECK 0; SODIUM 136 MEQ/L (136-147); UREA NITROGEN (BUN) 25 mg/dL (9-23)
[2016-08-17 14:54] LABS: POINT-OF-CARE METER ID UU13113731
[2016-08-17 17:23] LABS: POINT-OF-CARE METER ID UU13113731
[2016-08-17 18:13] LABS: HEMATOCRIT 33.2 % (38.0-50.0); MCH 27.1 PG (29.0-34.0); MCHC 30.1 G/DL (30.0-36.0); MEAN PLAT.VOLUME 11.3 uM^3 (9.0-12.4); PLATELET COUNT 142 K/uL (156-360); RBC DIS.WIDTH-CV 16.2 % (11.8-14.6); RBC DIS.WIDTH-SD 52.8 % (39-53); RED BLOOD COUNT 3.69 M/uL (4.00-5.50); WHITE BLOOD COUNT 10.6 K/uL (4.1-10.2)
[2016-08-17 18:23] LABS: CHLORIDE 108 mEq/L (99-109); POTASSIUM 4.6 mEq/L (3.7-5.4); SODIUM 138 mEq/L (136-147)
[2016-08-17 18:24] LABS: MAGNESIUM 2.4 mg/dL (1.3-2.7)
[2016-08-17 18:25] LABS: GLUCOSE 163 mg/dL (70-99)
[2016-08-17 18:27] LABS: ANION GAP 9 MEQ/L (2-14)
[2016-08-17 18:29] LABS: GFR ESTIMATE (CALCULATED) > 59 mL/min/
[2016-08-17 18:30] LABS: UREA NITROGEN (BUN) 23 mg/dL (9-23)
[2016-08-17 18:37] LABS: BASE EXCESS -1.2 mEq/L (-3 to +3); BICARBONATE 24.3 mEq/L (22-26); CARBOXY HGB 1.9 % (0-5); COMMENTS - BLOOD GASES NAC+; DEVICE PB 840 VENT; FI02 30 %; METHEMOGLOBIN 1.5 % (0-1.5); MODE TC; PCO2 43 mm Hg (35-45); PO2 95 mm Hg (80-100); SITE ALINE; TOTAL RESP RATE 13 resp/min; pH 7.36 (7.35-7.45)
[2016-08-18 00:17] LABS: HEMATOCRIT 32.6 % (38.0-50.0); MCH 26.7 PG (29.0-34.0); MCHC 30.1 G/DL (30.0-36.0); MCV 88.8 FL (86-99); MEAN PLAT.VOLUME 11.8 uM^3 (9.0-12.4); PLATELET COUNT 151 K/uL (156-360); RBC DIS.WIDTH-CV 16.2 % (11.8-14.6); RBC DIS.WIDTH-SD 53.2 % (39-53); RED BLOOD COUNT 3.67 M/uL (4.00-5.50); WHITE BLOOD COUNT 10.7 K/uL (4.1-10.2)
[2016-08-18 00:19] LABS: CHLORIDE 108 mEq/L (99-109); POTASSIUM 4.2 mEq/L (3.7-5.4); SODIUM 139 mEq/L (136-147)
[2016-08-18 00:20] LABS: MAGNESIUM 2.3 mg/dL (1.3-2.7)
[2016-08-18 00:21] LABS: GLUCOSE 136 mg/dL (70-99)
[2016-08-18 00:23] LABS: ANION GAP 11 MEQ/L (2-14)
[2016-08-18 00:25] LABS: GFR ESTIMATE (CALCULATED) > 59 mL/min/
[2016-08-18 00:26] LABS: UREA NITROGEN (BUN) 22 mg/dL (9-23)
[2016-08-18 00:51] LABS: POINT-OF-CARE METER ID UU14162636
[2016-08-18 06:15] LABS: HEMATOCRIT 32.6 % (38.0-50.0); MCH 27.2 PG (29.0-34.0); MCHC 30.1 G/DL (30.0-36.0); MCV 90.6 FL (86-99); MEAN PLAT.VOLUME 11.1 uM^3 (9.0-12.4); PLATELET COUNT 131 K/uL (156-360); RBC DIS.WIDTH-CV 16.2 % (11.8-14.6); RBC DIS.WIDTH-SD 54.4 % (39-53); WHITE BLOOD COUNT 9.9 K/uL (4.1-10.2)
[2016-08-18 06:45] LABS: ANION GAP 11 MEQ/L (2-14); CHLORIDE 105 MEQ/L (99-109); GFR ESTIMATE (CALCULATED) > 59 mL/min/; GLUCOSE 159 mg/dL (70-99); MAGNESIUM 2.4 mg/dl (1.3-2.7); POTASSIUM 4.6 MEQ/L (3.7-5.4); SAMPLE HEMOLYSIS CHECK 0; SAMPLE ICTERIC CHECK 0; SAMPLE LIPEMIA CHECK 0; SODIUM 139 MEQ/L (136-147); UREA NITROGEN (BUN) 20 mg/dL (9-23)
[2016-08-18 07:34] LABS: BASE EXCESS -3.6 mEq/L (-3 to +3); BICARBONATE 21.5 mEq/L (22-26); CARBOXY HGB 1.8 % (0-5); DEVICE VENT; FI02 30 %; METHEMOGLOBIN 1.7 % (0-1.5); MODE TC; PCO2 38 mm Hg (35-45); PO2 115 mm Hg (80-100); PRES. SUPPORT 5 CM/H2O; SITE L ALINE; TOTAL RESP RATE 10 resp/min; pH 7.36 (7.35-7.45)
[2016-08-18 13:02] LABS: POINT-OF-CARE METER ID UU13113731
[2016-08-18 13:10] LABS: HEMATOCRIT 30.8 % (38.0-50.0); MCH 26.7 PG (29.0-34.0); MCHC 29.2 G/DL (30.0-36.0); MCV 91.4 FL (86-99); MEAN PLAT.VOLUME 11.5 uM^3 (9.0-12.4); PLATELET COUNT 111 K/uL (156-360); RBC DIS.WIDTH-CV 16.2 % (11.8-14.6); RED BLOOD COUNT 3.37 M/uL (4.00-5.50); WHITE BLOOD COUNT 8.8 K/uL (4.1-10.2)
[2016-08-18 13:28] LABS: CHLORIDE 113 mEq/L (99-109); POTASSIUM 4.1 mEq/L (3.7-5.4); SODIUM 141 mEq/L (136-147)
[2016-08-18 13:30] LABS: GLUCOSE 131 mg/dL (70-99)
[2016-08-18 13:32] LABS: ANION GAP 11 MEQ/L (2-14)
[2016-08-18 13:34] LABS: GFR ESTIMATE (CALCULATED) > 59 mL/min/
[2016-08-18 13:35] LABS: UREA NITROGEN (BUN) 17 mg/dL (9-23)
[2016-08-18 17:51] LABS: POINT-OF-CARE METER ID UU14162636
[2016-08-18 18:35] LABS: MCH 26.8 PG (29.0-34.0); MCHC 29.7 G/DL (30.0-36.0); MCV 90.2 FL (86-99); RBC DIS.WIDTH-CV 16.2 % (11.8-14.6); RBC DIS.WIDTH-SD 53.5 % (39-53); RED BLOOD COUNT 3.77 M/uL (4.00-5.50); WHITE BLOOD COUNT 9.5 K/uL (4.1-10.2)
[2016-08-18 18:47] LABS: CHLORIDE 105 mEq/L (99-109); POTASSIUM 4.8 mEq/L (3.7-5.4); SODIUM 138 mEq/L (136-147)
[2016-08-18 18:49] LABS: GLUCOSE 140 mg/dL (70-99)
[2016-08-18 18:50] LABS: ANION GAP 13 MEQ/L (2-14)
[2016-08-18 18:52] LABS: MAGNESIUM 2.4 mg/dL (1.3-2.7)
[2016-08-18 18:53] LABS: GFR ESTIMATE (CALCULATED) > 59 mL/min/
[2016-08-18 18:54] LABS: UREA NITROGEN (BUN) 21 mg/dL (9-23)
[2016-08-18 19:18] LABS: MEAN PLAT.VOLUME 11.5 uM^3 (9.0-12.4)
[2016-08-18 19:19] LABS: PLATELET COUNT 145 K/uL (156-360)
[2016-08-19 01:17] LABS: MCH 27.2 PG (29.0-34.0); MCHC 30.3 G/DL (30.0-36.0); MCV 89.7 FL (86-99); MEAN PLAT.VOLUME 11.3 uM^3 (9.0-12.4); PLATELET COUNT 131 K/uL (156-360); RBC DIS.WIDTH-CV 16.2 % (11.8-14.6); RBC DIS.WIDTH-SD 53.2 % (39-53); RED BLOOD COUNT 3.68 M/uL (4.00-5.50); WHITE BLOOD COUNT 7.9 K/uL (4.1-10.2)
[2016-08-19 01:31] LABS: CHLORIDE 104 mEq/L (99-109); SODIUM 135 mEq/L (136-147)
[2016-08-19 01:32] LABS: MAGNESIUM 2.3 mg/dL (1.3-2.7)
[2016-08-19 01:35] LABS: ANION GAP 12 MEQ/L (2-14)
[2016-08-19 01:37] LABS: GFR ESTIMATE (CALCULATED) > 59 mL/min/
[2016-08-19 01:38] LABS: UREA NITROGEN (BUN) 24 mg/dL (9-23)
[2016-08-19 01:40] LABS: GLUCOSE 249 mg/dL (70-99)
[2016-08-19 02:02] LABS: POINT-OF-CARE METER ID UU14174217
[2016-08-19 05:35] LABS: POINT-OF-CARE METER ID UU14174217
[2016-08-19 07:12] LABS: HEMATOCRIT 31.2 % (38.0-50.0); MCH 27.5 PG (29.0-34.0); MCHC 30.4 G/DL (30.0-36.0); MCV 90.4 FL (86-99); MEAN PLAT.VOLUME 11.9 uM^3 (9.0-12.4); PLATELET COUNT 122 K/uL (156-360); RBC DIS.WIDTH-CV 16.2 % (11.8-14.6); RBC DIS.WIDTH-SD 53.9 % (39-53); RED BLOOD COUNT 3.45 M/uL (4.00-5.50); WHITE BLOOD COUNT 6.3 K/uL (4.1-10.2)
[2016-08-19 07:40] LABS: ANION GAP 9 MEQ/L (2-14); CHLORIDE 103 MEQ/L (99-109); GFR ESTIMATE (CALCULATED) > 59 mL/min/; GLUCOSE 223 mg/dL (70-99); MAGNESIUM 2.5 mg/dl (1.3-2.7); SAMPLE HEMOLYSIS CHECK 0; SAMPLE ICTERIC CHECK 0; SAMPLE LIPEMIA CHECK 0; SODIUM 135 MEQ/L (136-147); UREA NITROGEN (BUN) 23 mg/dL (9-23)
[2016-08-19 12:08] LABS: POINT-OF-CARE METER ID UU14162636
[2016-08-19 12:20] LABS: HEMATOCRIT 33.1 % (38.0-50.0); MCH 27.1 PG (29.0-34.0); MCHC 30.5 G/DL (30.0-36.0); MCV 88.7 FL (86-99); MEAN PLAT.VOLUME 10.9 uM^3 (9.0-12.4); PLATELET COUNT 125 K/uL (156-360); RBC DIS.WIDTH-CV 15.9 % (11.8-14.6); RBC DIS.WIDTH-SD 52.2 % (39-53); RED BLOOD COUNT 3.73 M/uL (4.00-5.50); WHITE BLOOD COUNT 7.5 K/uL (4.1-10.2)
[2016-08-19 12:37] LABS: CHLORIDE 104 mEq/L (99-109); POTASSIUM 4.8 mEq/L (3.7-5.4); SODIUM 134 mEq/L (136-147)
[2016-08-19 13:28] LABS: GFR ESTIMATE (CALCULATED) > 59 mL/min/; GLUCOSE 257 mg/dL (70-99); MAGNESIUM 2.2 mg/dl (1.3-2.7)
[2016-08-19 13:29] LABS: UREA NITROGEN (BUN) 24 mg/dL (9-23)
[2016-08-19 18:03] LABS: HEMATOCRIT 32.1 % (38.0-50.0); MCH 26.8 PG (29.0-34.0); MCHC 30.5 G/DL (30.0-36.0); MCV 87.9 FL (86-99); MEAN PLAT.VOLUME 11.1 uM^3 (9.0-12.4); PLATELET COUNT 130 K/uL (156-360); RBC DIS.WIDTH-CV 15.9 % (11.8-14.6); RBC DIS.WIDTH-SD 51.8 % (39-53); RED BLOOD COUNT 3.65 M/uL (4.00-5.50); WHITE BLOOD COUNT 8.1 K/uL (4.1-10.2)
[2016-08-19 18:16] LABS: CHLORIDE 107 mEq/L (99-109); POTASSIUM 4.5 mEq/L (3.7-5.4); SODIUM 136 mEq/L (136-147)
[2016-08-19 18:17] LABS: MAGNESIUM 2.1 mg/dL (1.3-2.7)
[2016-08-19 18:18] LABS: GLUCOSE 263 mg/dL (70-99)
[2016-08-19 18:19] LABS: ANION GAP 9 MEQ/L (2-14)
[2016-08-19 18:22] LABS: GFR ESTIMATE (CALCULATED) > 59 mL/min/
[2016-08-19 18:23] LABS: UREA NITROGEN (BUN) 23 mg/dL (9-23)
[2016-08-19 22:04] LABS: POINT-OF-CARE METER ID UU14162636
[2016-08-19 23:46] LABS: HEMATOCRIT 34.3 % (38.0-50.0); MCH 26.2 PG (29.0-34.0); MCHC 29.7 G/DL (30.0-36.0); MCV 88.2 FL (86-99); MEAN PLAT.VOLUME 10.8 uM^3 (9.0-12.4); PLATELET COUNT 147 K/uL (156-360); RBC DIS.WIDTH-SD 51.6 % (39-53); RED BLOOD COUNT 3.89 M/uL (4.00-5.50); WHITE BLOOD COUNT 10.5 K/uL (4.1-10.2)
[2016-08-20 00:09] LABS: CHLORIDE 106 mEq/L (99-109); POTASSIUM 4.2 mEq/L (3.7-5.4); SODIUM 138 mEq/L (136-147)
[2016-08-20 00:10] LABS: MAGNESIUM 2.2 mg/dL (1.3-2.7)
[2016-08-20 00:11] LABS: GLUCOSE 256 mg/dL (70-99)
[2016-08-20 00:12] LABS: ANION GAP 9 MEQ/L (2-14)
[2016-08-20 00:15] LABS: GFR ESTIMATE (CALCULATED) > 59 mL/min/; UREA NITROGEN (BUN) 22 mg/dL (9-23)
[2016-08-20 06:01] LABS: HEMATOCRIT 34.7 % (38.0-50.0); MCH 27.5 PG (29.0-34.0); MCHC 30.5 G/DL (30.0-36.0); MCV 89.9 FL (86-99); MEAN PLAT.VOLUME 11.5 uM^3 (9.0-12.4); PLATELET COUNT 165 K/uL (156-360); RBC DIS.WIDTH-CV 16.3 % (11.8-14.6); RED BLOOD COUNT 3.86 M/uL (4.00-5.50); WHITE BLOOD COUNT 11.1 K/uL (4.1-10.2)
[2016-08-20 06:42] LABS: ANION GAP 10 MEQ/L (2-14); CHLORIDE 103 MEQ/L (99-109); GFR ESTIMATE (CALCULATED) > 59 mL/min/; GLUCOSE 182 mg/dL (70-99); MAGNESIUM 2.3 mg/dl (1.3-2.7); POTASSIUM 4.3 MEQ/L (3.7-5.4); SAMPLE HEMOLYSIS CHECK 0; SAMPLE ICTERIC CHECK 0; SAMPLE LIPEMIA CHECK 0; SODIUM 139 MEQ/L (136-147); UREA NITROGEN (BUN) 19 mg/dL (9-23)
[2016-08-20 08:43] LABS: POINT-OF-CARE METER ID UU13113803
[2016-08-20 12:17] LABS: POINT-OF-CARE METER ID UU13113803
[2016-08-20 13:04] LABS: HEMATOCRIT 34.5 % (38.0-50.0); MCH 27.1 PG (29.0-34.0); MCHC 30.4 G/DL (30.0-36.0); MCV 88.9 FL (86-99); MEAN PLAT.VOLUME 11.9 uM^3 (9.0-12.4); PLATELET COUNT 152 K/uL (156-360); RBC DIS.WIDTH-CV 16.1 % (11.8-14.6); RBC DIS.WIDTH-SD 52.5 % (39-53); RED BLOOD COUNT 3.88 M/uL (4.00-5.50); WHITE BLOOD COUNT 9.7 K/uL (4.1-10.2)
[2016-08-20 13:17] LABS: CHLORIDE 106 mEq/L (99-109); POTASSIUM 4.6 mEq/L (3.7-5.4); SODIUM 137 mEq/L (136-147)
[2016-08-20 13:18] LABS: MAGNESIUM 2.1 mg/dL (1.3-2.7)
[2016-08-20 13:20] LABS: ANION GAP 10 MEQ/L (2-14)
[2016-08-20 13:21] LABS: GLUCOSE 291 mg/dL (70-99)
[2016-08-20 13:23] LABS: GFR ESTIMATE (CALCULATED) > 59 mL/min/
[2016-08-20 13:24] LABS: UREA NITROGEN (BUN) 19 mg/dL (9-23)
[2016-08-20 17:00] VITALS: BP 0/0; BP 107/81
[2016-08-20 17:54] LABS: POINT-OF-CARE METER ID UU13113803
[2016-08-20 18:00] VITALS: BP 107/81
[2016-08-20 19:00] VITALS: BP 165/76
[2016-08-20 20:00] VITALS: BP 135/68
[2016-08-20 21:39] LABS: POINT-OF-CARE METER ID UU13113803
[2016-08-20 22:00] VITALS: BP 137/63
[2016-08-21] VITALS (9 sets, daily range): BP systolic 123–175; BP diastolic 59–80
[2016-08-21 06:26] LABS: EOSINOPHIL (%) 2.7 % (0-5); EOSINOPHIL COUNT 0.2 K/uL (0-0.3); HEMATOCRIT 32.9 % (38.0-50.0); IMMATURE GRANULOCYTE (%) 0.4 % (0.0-0.7); INSTRUMENT ABS NEUTROPHIL CT 5.2 K/uL; LYMPHOCYTE COUNT 1.4 K/uL (1.0-2.8); MCH 26.8 PG (29.0-34.0); MCHC 29.8 G/DL (30.0-36.0); MCV 89.9 FL (86-99); MEAN PLAT.VOLUME 11.5 uM^3 (9.0-12.4); MONOCYTE COUNT 0.9 K/uL (0-0.8); NEUTROPHIL (%) 66.8 % (45-76); NEUTROPHIL COUNT 5.2 K/uL (1.8-6.4); PLATELET COUNT 133 K/uL (156-360); RBC DIS.WIDTH-CV 16.1 % (11.8-14.6); RBC DIS.WIDTH-SD 52.9 % (39-53); RED BLOOD COUNT 3.66 M/uL (4.00-5.50); WHITE BLOOD COUNT 7.8 K/uL (4.1-10.2)
[2016-08-21 06:48] LABS: ANION GAP 7 MEQ/L (2-14); CHLORIDE 105 MEQ/L (99-109); GFR ESTIMATE (CALCULATED) > 59 mL/min/; GLUCOSE 240 mg/dL (70-99); POTASSIUM 4.2 MEQ/L (3.7-5.4); SAMPLE HEMOLYSIS CHECK 0; SAMPLE ICTERIC CHECK 0; SAMPLE LIPEMIA CHECK 0; SODIUM 139 MEQ/L (136-147); UREA NITROGEN (BUN) 18 mg/dL (9-23)
[2016-08-21 08:38] LABS: POINT-OF-CARE METER ID UU13113803
[2016-08-21 12:26] LABS: POINT-OF-CARE METER ID UU14174217
[2016-08-21 21:50] LABS: POINT-OF-CARE USER ID ENVMNS
[2016-08-22 04:00] VITALS: BP 144/71
[2016-08-22 06:43] LABS: CHLORIDE 104 mEq/L (99-109); POTASSIUM 4.7 mEq/L (3.7-5.4); SODIUM 138 mEq/L (136-147)
[2016-08-22 06:45] LABS: GLUCOSE 233 mg/dL (70-99)
[2016-08-22 06:46] LABS: ANION GAP 10 MEQ/L (2-14)
[2016-08-22 06:49] LABS: GFR ESTIMATE (CALCULATED) > 59 mL/min/
[2016-08-22 06:50] LABS: UREA NITROGEN (BUN) 15 mg/dL (9-23)
[2016-08-22 07:51] LABS: HEMATOCRIT 31.5 % (38.0-50.0); MCH 27.2 PG (29.0-34.0); MCHC 30.5 G/DL (30.0-36.0); MCV 89.2 FL (86-99); PLATELET COUNT 127 K/uL (156-360); RBC DIS.WIDTH-CV 16.3 % (11.8-14.6); RBC DIS.WIDTH-SD 53.1 % (39-53); RED BLOOD COUNT 3.53 M/uL (4.00-5.50); WHITE BLOOD COUNT 6.7 K/uL (4.1-10.2)
[2016-08-22 08:30] VITALS: BP 133/63
[2016-08-22 12:00] VITALS: BP 145/74
[2016-08-22 16:00] VITALS: BP 136/66
[2016-08-22 20:01] VITALS: BP 131/62
[2016-08-22 23:55] VITALS: BP 140/62
[2016-08-23 04:00] VITALS: BP 144/76
[2016-08-23 06:56] LABS: ANION GAP 6 MEQ/L (2-14); CHLORIDE 100 MEQ/L (99-109); GFR ESTIMATE (CALCULATED) > 59 mL/min/; GLUCOSE 284 mg/dL (70-99); POTASSIUM 4.1 MEQ/L (3.7-5.4); SAMPLE HEMOLYSIS CHECK 0; SAMPLE ICTERIC CHECK 0; SAMPLE LIPEMIA CHECK 0; SODIUM 136 MEQ/L (136-147); UREA NITROGEN (BUN) 16 mg/dL (9-23)
[2016-08-23 09:00] VITALS: BP 138/64
[2016-08-23 11:22] LABS: POINT-OF-CARE METER ID UU13113781
[2016-08-23 12:00] VITALS: BP 135/60
[2016-08-23 16:00] VITALS: BP 127/67
[2016-08-23 16:02] LABS: POINT-OF-CARE METER ID UU13113781
[2016-08-23 20:01] VITALS: BP 119/58
[2016-08-23 21:05] LABS: POINT-OF-CARE METER ID UU13113781
[2016-08-24 00:19] VITALS: BP 150/72
[2016-08-24 03:45] VITALS: BP 132/66
[2016-08-24 06:40] LABS: ANION GAP 8 MEQ/L (2-14); CHLORIDE 100 MEQ/L (99-109); GFR ESTIMATE (CALCULATED) > 59 mL/min/; GLUCOSE 195 mg/dL (70-99); POTASSIUM 3.8 MEQ/L (3.7-5.4); SAMPLE HEMOLYSIS CHECK 0; SAMPLE ICTERIC CHECK 0; SAMPLE LIPEMIA CHECK 0; SODIUM 138 MEQ/L (136-147); UREA NITROGEN (BUN) 13 mg/dL (9-23)
[2016-08-24 08:00] VITALS: BP 138/65
[2016-08-24 11:25] LABS: POINT-OF-CARE USER ID NUTSLF44
[2016-08-24 11:47] VITALS: BP 131/60
[2016-08-24] MEDS ORDERED: CARDIZEM30 MG PO (13:41)
== END 2016-08-24 15:14 | disposition home health service (06) | DRG 190 ==
LOC: EME 19:23 → 4WEST 22:57 → 5SOUTH 22:57 → EDOF 22:57 → 5SOUTH 08-10 00:25 → 4WEST 08-13 09:48 → 4EAST 08-21 13:17
PROVIDERS: Emergency Medicine; Hospitalist; Internal Medicine; Internal Medicine Nephrology; Physician Assistant Medical; Psychiatry & Neurology Neurology
PROC: 0W993ZZ Drainage of Right Pleural Cavity, Percutaneous Approach (ICD-10-PCS; principal; 2016-08-10)
PROC: 0W993ZZ Drainage of Right Pleural Cavity, Percutaneous Approach (ICD-10-PCS; 2016-08-17)
DX: J44.1 Chronic obstructive pulmonary disease with (acute) exacerbation (principal); J96.21 Acute and chronic respiratory failure with hypoxia; I48.2 Chronic atrial fibrillation; J90 Pleural effusion, not elsewhere classified; E66.2 Morbid (severe) obesity with alveolar hypoventilation; I11.0 Hypertensive heart disease with heart failure; N17.9 Acute kidney failure, unspecified; E87.5 Hyperkalemia; E87.1 Hypo-osmolality and hyponatremia; R33.9 Retention of urine, unspecified; R32 Unspecified urinary incontinence; B37.89 Other sites of candidiasis; E11.65 Type 2 diabetes mellitus with hyperglycemia; F32.9 Major depressive disorder, single episode, unspecified; I50.30 Unspecified diastolic (congestive) heart failure; K31.89 Other diseases of stomach and duodenum; F41.9 Anxiety disorder, unspecified; E55.9 Vitamin D deficiency, unspecified; K21.9 Gastro-esophageal reflux disease without esophagitis; G89.29 Other chronic pain; G47.33 Obstructive sleep apnea (adult) (pediatric); F51.9 Sleep disorder not due to a substance or known physiological condition, unspecified; E78.5 Hyperlipidemia, unspecified; I25.10 Atherosclerotic heart disease of native coronary artery without angina pectoris; Z87.891 Personal history of nicotine dependence; Z88.8 Allergy status to other drugs, medicaments and biological substances; Z68.43 Body mass index [BMI] 50.0-59.9, adult; Z91.048 Other nonmedicinal substance allergy status; Z99.81 Dependence on supplemental oxygen; Z91.19 Patient's noncompliance with other medical treatment and regimen; Z91.14 Patient's other noncompliance with medication regimen
CPT/HCPCS: 36600; 36620; 71010; 71020; 71275; 74000; 76770; 80048; 80048 91; 80053; 80069; 80076; 82330; 82550; 82570; 82803; 82945; 82948; 83615 91; 83735; 83880; 84100; 84156; 84157; 84484; 84999; 85025; 85025 91; 85027; 85610; 85730; 87070; 87075; 87205; 87641; 88108; 88305; 89051; 93005; 93306; 93970; 94002; 94003; 94010; 94640; 94640 76; 94660; 94760; 94799; 97530 GO; 99202; 99281; 99285; C1788; J0456; J0610; J1265; J1644; J1815; J1940; J2250; J2405; J2543; J2920; J2930; J3475; J7030; J7050; J7512; P9045; S0028

== ENCOUNTER 2016-08-27 11:56 | Inpatient (IN) | payer OTHER ==
[2016-08-27] VITALS (11 sets, daily range): BP systolic 85–157; BP diastolic 62–87
[~2016-08-27] VITALS: Ht 182.9 cm; Wt 209.0 kg
[~2016-08-27 11:56] MED LIST changes: +CARDIZEM30 MG PO; +LITE COAT ASPI325 M1 PO; +SERTRALINE HCL50 MG PO
[2016-08-27 13:05] LABS: HEMATOCRIT 31.7 % (38.0-50.0); MCH 27.2 PG (29.0-34.0); MCV 90.8 FL (86-99); RBC DIS.WIDTH-CV 16.7 % (11.8-14.6); RBC DIS.WIDTH-SD 55.5 % (39-53); RED BLOOD COUNT 3.49 M/uL (4.00-5.50)
[2016-08-27 13:07] LABS: CHLORIDE 98 mEq/L (99-109); POTASSIUM 4.1 mEq/L (3.7-5.4); SODIUM 136 mEq/L (136-147)
[2016-08-27 13:10] LABS: GLUCOSE 152 mg/dL (70-99)
[2016-08-27 13:11] LABS: ANION GAP 9 MEQ/L (2-14); TOTAL BILIRUBIN 0.4 mg/dL (0.0-1.0)
[2016-08-27 13:13] LABS: ALKALINE PHOSPHATASE 72 IU/L (3-129); GFR ESTIMATE (CALCULATED) 27 mL/min/
[2016-08-27 13:17] LABS: UREA NITROGEN (BUN) 30 mg/dL (9-23)
[2016-08-27 14:07] LABS: MEAN PLAT.VOLUME 11.6 uM^3 (9.0-12.4); PLAT.SUFFICIENCY ADEQUATE
[2016-08-27 14:18] LABS: PLATELET COUNT 169 K/uL (156-360)
[2016-08-27 15:10] LABS: TROP-I INTERPRETATION NEGATIVE; TROPONIN-I 0.03 ng/mL (0.0-0.30)
[2016-08-27] MEDS ORDERED: LYRICA150 MG PO (15:43)
[2016-08-27] MEDS ORDERED: SERTRALINE HCL50 MG PO (15:43)
[2016-08-27 16:39] LABS: MAGNESIUM 1.4 mg/dL (1.3-2.7)
[2016-08-27 16:46] LABS: CREATINE KINASE 69 IU/L (1-294)
[2016-08-27 17:50] LABS: CARBON DIOXIDE (BICARBONATE) 31.1 MEQ/L (20-31)
[2016-08-27 18:20] LABS: POINT-OF-CARE METER ID UU14100415
[2016-08-27 18:33] LABS: CREATININE 1.8 mg/dL (0.6-1.3); POTASSIUM 3.4 mEq/L (3.7-5.4)
[2016-08-27 19:34] LABS: ADD MIUA? NO; BILIRUBIN SMALL; BLOOD NEGATIVE; COLOR AMBER ((YELLOW)); GLUCOSE (STRIP) NEGATIVE; KETONES 5; LEUKOCYTES NEGATIVE; NITRITE NEGATIVE; PROTEIN (STRIP) 30; SPECIFIC GRAVITY 1.018 (1.000-1.030); UCUL ADDED? NO
[2016-08-27 19:38] LABS: BASE EXCESS 1.4 mEq/L (-3 to +3); CARBOXY HGB 1.6 % (0-5); METHEMOGLOBIN 1.1 % (0-1.5)
[2016-08-27 19:39] LABS: BICARBONATE 28.9 mEq/L (22-26); COMMENTS - BLOOD GASES C+; DEVICE VENT; FI02 70 %; PCO2 60 mm Hg (35-45); PO2 89 mm Hg (80-100); SITE RR; pH 7.29 (7.35-7.45)
[2016-08-27 19:40] LABS: MECHANICAL RATE 16 resp/min; MODE A/C; PEEP 5 CM/H20; TIDAL VOLUME 500 ML; TOTAL RESP RATE 16 resp/min
[2016-08-28] VITALS (13 sets, daily range): BP systolic 127–167; BP diastolic 57–105
[2016-08-28 00:05] LABS: POINT-OF-CARE USER ID PHATLC
[2016-08-28 01:34] LABS: EOSINOPHIL (%) 0.1 % (0-5); HEMATOCRIT 33.8 % (38.0-50.0); IMMATURE GRANULOCYTE (%) 0.7 % (0.0-0.7); IMMATURE GRANULOCYTE COUNT 0.1 K/uL; INSTRUMENT ABS NEUTROPHIL CT 8.3 K/uL; LYMPHOCYTE COUNT 0.4 K/uL (1.0-2.8); MCH 27.2 PG (29.0-34.0); MCHC 30.2 G/DL (30.0-36.0); MCV 90.1 FL (86-99); MONOCYTE COUNT 0.2 K/uL (0-0.8); NEUTROPHIL (%) 92.5 % (45-76); NEUTROPHIL COUNT 8.3 K/uL (1.8-6.4); RBC DIS.WIDTH-CV 16.7 % (11.8-14.6); RBC DIS.WIDTH-SD 55.7 % (39-53); RED BLOOD COUNT 3.75 M/uL (4.00-5.50)
[2016-08-28 01:39] LABS: CHLORIDE 103 mEq/L (99-109); SODIUM 139 mEq/L (136-147)
[2016-08-28 01:40] LABS: MAGNESIUM 1.3 mg/dL (1.3-2.7)
[2016-08-28 01:42] LABS: GLUCOSE 129 mg/dL (70-99)
[2016-08-28 01:43] LABS: ANION GAP 12 MEQ/L (2-14)
[2016-08-28 01:44] LABS: TOTAL BILIRUBIN 0.5 mg/dL (0.0-1.0)
[2016-08-28 01:45] LABS: ALKALINE PHOSPHATASE 92 IU/L (3-129)
[2016-08-28 01:46] LABS: GFR ESTIMATE (CALCULATED) 39 mL/min/
[2016-08-28 01:47] LABS: UREA NITROGEN (BUN) 28 mg/dL (9-23)
[2016-08-28 03:22] LABS: MEAN PLAT.VOLUME 12.7 uM^3 (9.0-12.4); PLAT.SUFFICIENCY DECREASED; PLATELET COUNT 119 K/uL (156-360)
[2016-08-28 04:00] LABS: BASE EXCESS 4.5 mEq/L (-3 to +3); BICARBONATE 29.2 mEq/L (22-26); CARBOXY HGB 1.5 % (0-5); COMMENTS - BLOOD GASES A+C+; DEVICE 840; FI02 50 %; MECHANICAL RATE 20 resp/min; METHEMOGLOBIN 1.5 % (0-1.5); MODE AC; PCO2 43 mm Hg (35-45); PEEP 5 CM/H20; PO2 80 mm Hg (80-100); SITE RR; TIDAL VOLUME 500 ML; TOTAL RESP RATE 20 resp/min; pH 7.44 (7.35-7.45)
[2016-08-28 06:31] LABS: POINT-OF-CARE METER ID UU14162636; POINT-OF-CARE USER ID PHATLC
[2016-08-28 13:43] LABS: POINT-OF-CARE METER ID UU13113803
[2016-08-28 17:34] LABS: UR CREATININE CONCENTRATION 212.5 MG/DL
[2016-08-29] VITALS (7 sets, daily range): BP systolic 131–147; BP diastolic 67–77
[2016-08-29 07:30] LABS: POINT-OF-CARE USER ID ENVSME70
[2016-08-29 11:02] LABS: ANION GAP 12 MEQ/L (2-14); CHLORIDE 95 MEQ/L (99-109); POTASSIUM 4.3 MEQ/L (3.7-5.4); SAMPLE HEMOLYSIS CHECK 0; SAMPLE ICTERIC CHECK 0; SAMPLE LIPEMIA CHECK 0; SODIUM 135 MEQ/L (136-147)
[2016-08-29 11:14] LABS: GFR ESTIMATE (CALCULATED) > 59 mL/min/; UREA NITROGEN (BUN) 34 mg/dL (9-23)
[2016-08-29 11:16] LABS: GLUCOSE 388 mg/dL (70-99)
[2016-08-30] VITALS (7 sets, daily range): BP systolic 120–187; BP diastolic 63–96
[2016-08-30 05:22] LABS: EOSINOPHIL (%) 0 % (0-5); HEMATOCRIT 30.2 % (38.0-50.0); IMMATURE GRANULOCYTE (%) 0.5 % (0.0-0.7); IMMATURE GRANULOCYTE COUNT 0.1 K/uL; INSTRUMENT ABS NEUTROPHIL CT 8.7 K/uL; LYMPHOCYTE COUNT 0.4 K/uL (1.0-2.8); MCH 28.2 PG (29.0-34.0); MCHC 31.8 G/DL (30.0-36.0); MCV 88.6 FL (86-99); MEAN PLAT.VOLUME 11.5 uM^3 (9.0-12.4); MONOCYTE (%) 4.6 % (3-12); MONOCYTE COUNT 0.4 K/uL (0-0.8); NEUTROPHIL (%) 90.9 % (45-76); NEUTROPHIL COUNT 8.7 K/uL (1.8-6.4); PLATELET COUNT 129 K/uL (156-360); RBC DIS.WIDTH-CV 16.9 % (11.8-14.6); RBC DIS.WIDTH-SD 54.3 % (39-53); RED BLOOD COUNT 3.41 M/uL (4.00-5.50); WHITE BLOOD COUNT 9.6 K/uL (4.1-10.2)
[2016-08-30 06:25] LABS: ANION GAP 10 MEQ/L (2-14); CHLORIDE 100 MEQ/L (99-109); GFR ESTIMATE (CALCULATED) > 59 mL/min/; GLUCOSE 253 mg/dL (70-99); POTASSIUM 4.6 MEQ/L (3.7-5.4); SAMPLE HEMOLYSIS CHECK 0; SAMPLE ICTERIC CHECK 0; SAMPLE LIPEMIA CHECK 0; SODIUM 136 MEQ/L (136-147); UREA NITROGEN (BUN) 31 mg/dL (9-23)
[2016-08-30 08:28] LABS: POINT-OF-CARE METER ID UU14174217
[2016-08-30 11:56] LABS: POINT-OF-CARE METER ID UU14174217
[2016-08-30 21:01] LABS: POINT-OF-CARE METER ID UU13113725
[2016-08-31 03:46] VITALS: BP 158/94
[2016-08-31 05:43] LABS: POINT-OF-CARE METER ID UU13113725
[2016-08-31 07:08] VITALS: BP 134/80
[2016-08-31 07:34] LABS: ANION GAP 7 MEQ/L (2-14); CHLORIDE 100 MEQ/L (99-109); GFR ESTIMATE (CALCULATED) > 59 mL/min/; SAMPLE HEMOLYSIS CHECK 0; SAMPLE ICTERIC CHECK 0; SAMPLE LIPEMIA CHECK 0; SODIUM 142 MEQ/L (136-147); UREA NITROGEN (BUN) 30 mg/dL (9-23)
[2016-08-31 07:51] LABS: GLUCOSE 81 mg/dL (70-99)
[2016-08-31] MEDS ORDERED: APRESOLINE25 MG PO (11:27)
[2016-08-31] MEDS ORDERED: PREDNISONE20 MG PO (11:31)
[2016-08-31] MEDS ORDERED: LASIX40 MG PO (11:32)
[2016-08-31 12:13] VITALS: BP 132/60
[2016-09-01 10:55] LABS: POINT-OF-CARE METER ID UU14174217
[2016-09-01 11:09] LABS: POINT-OF-CARE METER ID UU14100415
== END 2016-08-31 13:53 | disposition home health service (06) | DRG 682 ==
LOC: EME 11:56 → 4WEST 15:29 → EDOF 15:29 → 4WEST 20:53 → 5EAST 08-30 13:54
PROVIDERS: Emergency Medicine; Internal Medicine; Internal Medicine Critical Care Medicine; Internal Medicine Nephrology; Nurse Practitioner Family
DX: N17.0 Acute kidney failure with tubular necrosis (principal); J96.21 Acute and chronic respiratory failure with hypoxia; J96.22 Acute and chronic respiratory failure with hypercapnia; G93.41 Metabolic encephalopathy; J90 Pleural effusion, not elsewhere classified; J44.1 Chronic obstructive pulmonary disease with (acute) exacerbation; I11.0 Hypertensive heart disease with heart failure; I50.32 Chronic diastolic (congestive) heart failure; I48.2 Chronic atrial fibrillation; E87.2 Acidosis; Z99.81 Dependence on supplemental oxygen; Z79.4 Long term (current) use of insulin; E78.5 Hyperlipidemia, unspecified; G47.33 Obstructive sleep apnea (adult) (pediatric); E66.01 Morbid (severe) obesity due to excess calories; Z68.44 Body mass index [BMI] 60.0-69.9, adult; I95.1 Orthostatic hypotension; R00.0 Tachycardia, unspecified; Z91.19 Patient's noncompliance with other medical treatment and regimen; D53.9 Nutritional anemia, unspecified; Z87.891 Personal history of nicotine dependence; D72.829 Elevated white blood cell count, unspecified; E86.1 Hypovolemia; E86.9 Volume depletion, unspecified; E87.6 Hypokalemia; Z91.81 History of falling; E11.649 Type 2 diabetes mellitus with hypoglycemia without coma; J45.909 Unspecified asthma, uncomplicated; E86.0 Dehydration; R40.2442 Other coma, without documented Glasgow coma scale score, or with partial score reported, at arrival to emergency department
CPT/HCPCS: 36600; 70450; 71010; 71020; 76770; 80047; 80048; 80053; 80069; 81003; 82436; 82550 91; 82570; 82803; 82948; 83605; 83735; 84100; 84133; 84156; 84300; 84484; 84999; 85025; 85027; 87040; 87070; 87205; 87641; 93005; 94002; 94003; 94640; 94640 76; 94660; 94760; 94799; 97530 GO; 97530 GP; 99202; 99281; 99285; J0610; J1815; J2250; J2704; J2920; J2930; J3475; J7030; J7040; J7042; J7050; S0028

== ENCOUNTER 2016-09-20 00:40 | Inpatient (IN) | payer OTHER ==
[~2016-09-20] VITALS: Ht 182.9 cm; Wt 147.7 kg
[~2016-09-20 00:40] MED LIST changes: +APRESOLINE25 MG PO
[2016-09-20 01:22] LABS: EOSINOPHIL (%) 0.5 % (0-5); HEMATOCRIT 30.3 % (38.0-50.0); IMMATURE GRANULOCYTE (%) 2.9 % (0.0-0.7); IMMATURE GRANULOCYTE COUNT 0.3 K/uL; INSTRUMENT ABS NEUTROPHIL CT 6.4 K/uL; LYMPHOCYTE COUNT 0.9 K/uL (1.0-2.8); MCH 26.3 PG (29.0-34.0); MCHC 29.4 G/DL (30.0-36.0); MCV 89.6 FL (86-99); MEAN PLAT.VOLUME 10.2 uM^3 (9.0-12.4); MONOCYTE (%) 11.8 % (3-12); NEUTROPHIL (%) 74.4 % (45-76); NEUTROPHIL COUNT 6.4 K/uL (1.8-6.4); PLATELET COUNT 296 K/uL (156-360); RBC DIS.WIDTH-SD 55.8 % (39-53); RED BLOOD COUNT 3.38 M/uL (4.00-5.50); WHITE BLOOD COUNT 8.6 K/uL (4.1-10.2)
[2016-09-20 01:29] LABS: CHLORIDE 94 mEq/L (99-109); POTASSIUM 3.9 mEq/L (3.7-5.4); SODIUM 140 mEq/L (136-147)
[2016-09-20 01:31] LABS: GLUCOSE 274 mg/dL (70-99)
[2016-09-20 01:33] LABS: ANION GAP 11 MEQ/L (2-14); TOTAL BILIRUBIN 0.8 mg/dL (0.0-1.0)
[2016-09-20 01:35] LABS: ALKALINE PHOSPHATASE 110 IU/L (3-129); GFR ESTIMATE (CALCULATED) > 59 mL/min/
[2016-09-20 01:36] LABS: UREA NITROGEN (BUN) 17 mg/dL (9-23)
[2016-09-20 01:43] LABS: TROP-I INTERPRETATION NEGATIVE; TROPONIN-I 0.02 ng/mL (0.0-0.30)
[2016-09-20] MEDS ORDERED: FUROSEMIDE40 MG PO (06:11)
[2016-09-20] MEDS ORDERED: HYDROCODON-ACE1 EAC7 PO (06:12)
[2016-09-20] MEDS ORDERED: LISINOPRIL20 MG PO (06:12)
[2016-09-20] MEDS ORDERED: CYCLOBENZAPRINE10 MG PO (06:13)
[2016-09-20] MEDS ORDERED: LYRICA225 MG PO (06:14)
[2016-09-20] MEDS ORDERED: CARDIZEM30 MG PO (06:17)
[2016-09-20] MEDS ORDERED: SOLARAZE 3% GEL50 GM TP (06:18)
[2016-09-20] MEDS ORDERED: LEVEMIR FL100 UNIT/1 SC (06:19)
[2016-09-20] MEDS ORDERED: PRAVACHOL40 MG PO (06:19)
[2016-09-20 07:11] LABS: ADD MIUA? YES; BILIRUBIN SMALL; BLOOD NEGATIVE; COLOR YELLOW ((YELLOW)); GLUCOSE (STRIP) 150; KETONES NEGATIVE; LEUKOCYTES SMALL; NITRITE POSITIVE; PROTEIN (STRIP) 30; SPECIFIC GRAVITY 1.018 (1.000-1.030)
[2016-09-20 07:29] LABS: BACTERIA NONE SEEN /HPF; EPITHELIAL CELLS NONE SEEN /HPF; HYALINE CASTS 0-5 /LPF; MUCUS NONE SEEN /LPF; RED BLOOD CELLS 0-5 /HPF (0-5); UCUL ADDED? NO; WHITE BLOOD CELLS 20-30 /HPF (0-5); WHITE BLOOD CELLS CLUMP RARE /HPF (0-5)
[2016-09-20 07:30] VITALS: BP 140/67
[2016-09-20 11:58] VITALS: BP 135/64
[2016-09-20 13:15] LABS: TYPE OF FLUID THORACENTESIS
[2016-09-20 13:54] LABS: GLUCOSE 335 mg/dL (70-99); LACTATE DEHYDROGENASE 187 IU/L (20-246)
[2016-09-20 14:06] LABS: BODY FLUID LDH 80 IU/L
[2016-09-20 14:07] LABS: BODY FLUID PROTEIN < 3.0 G/DL
[2016-09-20 14:10] LABS: BODY FLUID EOSINOPHILS 0 % (0-25); BODY FLUID RBC'S 20000 /MM^3 (0-100); BODY FLUID WBC'S 521 /MM^3 (0-500); MONONUCLEAR WBC'S 71 %; POLYNUCLEAR WBC'S 29 % (0-25)
[2016-09-20 15:55] VITALS: BP 151/65
[2016-09-20 16:34] LABS: POINT-OF-CARE METER ID UU14149397
[2016-09-20] MEDS ORDERED: SPIRIVA1 INHALATI IH (18:32)
[2016-09-20 20:07] VITALS: BP 134/68
[2016-09-20 21:17] LABS: POINT-OF-CARE METER ID UU14149397
[2016-09-20 23:37] VITALS: BP 107/59
[2016-09-21 04:17] VITALS: BP 137/84
[2016-09-21 07:16] LABS: HEMATOCRIT 28.6 % (38.0-50.0); MCH 27.5 PG (29.0-34.0); MCHC 30.4 G/DL (30.0-36.0); MCV 90.5 FL (86-99); MEAN PLAT.VOLUME 11.1 uM^3 (9.0-12.4); PLATELET COUNT 274 K/uL (156-360); RBC DIS.WIDTH-CV 16.9 % (11.8-14.6); RBC DIS.WIDTH-SD 56.3 % (39-53); RED BLOOD COUNT 3.16 M/uL (4.00-5.50); WHITE BLOOD COUNT 11.6 K/uL (4.1-10.2)
[2016-09-21 07:29] LABS: ANION GAP 10 MEQ/L (2-14); CHLORIDE 95 MEQ/L (99-109); GFR ESTIMATE (CALCULATED) > 59 mL/min/; GLUCOSE 261 mg/dL (70-99); POTASSIUM 4.5 MEQ/L (3.7-5.4); SAMPLE HEMOLYSIS CHECK 0; SAMPLE ICTERIC CHECK 0; SAMPLE LIPEMIA CHECK 0; SODIUM 136 MEQ/L (136-147); UREA NITROGEN (BUN) 21 mg/dL (9-23)
[2016-09-21 07:56] VITALS: BP 139/84
[2016-09-21 10:39] VITALS: BP 116/59
[2016-09-21 11:41] LABS: POINT-OF-CARE METER ID UU14149397
[2016-09-21 16:39] LABS: POINT-OF-CARE METER ID UU13113725
[2016-09-21 18:06] LABS: POINT-OF-CARE METER ID UU13113725
[2016-09-21 20:55] LABS: POINT-OF-CARE METER ID UU13113725
[2016-09-21 23:01] VITALS: BP 141/70
[2016-09-21 23:11] LABS: POINT-OF-CARE METER ID UU13113725
[2016-09-22 06:21] LABS: POINT-OF-CARE METER ID UU13113725
[2016-09-22 08:00] VITALS: BP 147/82
[2016-09-22 12:09] LABS: POINT-OF-CARE METER ID UU13113725
[2016-09-22 16:08] LABS: POINT-OF-CARE METER ID UU13113725
[2016-09-22 16:18] VITALS: BP 137/76
[2016-09-22 19:59] VITALS: BP 119/58
[2016-09-22 21:09] LABS: POINT-OF-CARE METER ID UU13113725
[2016-09-22 23:51] VITALS: BP 114/57
[2016-09-23 03:30] VITALS: BP 119/62
[2016-09-23 06:05] LABS: POINT-OF-CARE METER ID UU13113725
[2016-09-23 06:45] LABS: GFR ESTIMATE (CALCULATED) > 59 mL/min/; UREA NITROGEN (BUN) 21 mg/dL (9-23)
[2016-09-23 08:00] VITALS: BP 143/78
[2016-09-23 12:00] VITALS: BP 151/65
[2016-09-23 18:01] VITALS: BP 161/80
[2016-09-23 19:43] VITALS: BP 133/68
[2016-09-23 23:21] VITALS: BP 112/62
[2016-09-24 03:30] VITALS: BP 121/68; BP 142/61
[2016-09-24 08:00] VITALS: BP 139/89
[2016-09-24 12:21] VITALS: BP 136/78
[2016-09-24] MEDS ORDERED: FLORASTOR250 MG PO (13:52)
[2016-09-24] MEDS ORDERED: CEFDINIR300 MG PO (13:52)
[2016-09-24] MEDS ORDERED: PREDNISONE5 MG PO (13:52)
[2016-09-24] MEDS ORDERED: ADVAIR HFA120 INHALA IH (13:52)
[2016-09-24] MEDS ORDERED: FUROSEMIDE40 MG PO (13:52)
[2016-09-24 16:50] VITALS: BP 151/79
== END 2016-09-24 18:29 | disposition home health service (06) | DRG 190 ==
LOC: EME 00:40 → 5EAST 05:38 → EDOF 05:38 → 3EAST 07:07 → 5EAST 09-21 15:52
PROVIDERS: Emergency Medicine; Hospitalist; Internal Medicine; Internal Medicine Pulmonary Disease; Radiology Diagnostic Radiology
PROC: 0W993ZX Drainage of Right Pleural Cavity, Percutaneous Approach, Diagnostic (ICD-10-PCS; principal; 2016-09-20)
DX: J44.0 Chronic obstructive pulmonary disease with (acute) lower respiratory infection (principal); J18.0 Bronchopneumonia, unspecified organism; Y95 Nosocomial condition; J44.1 Chronic obstructive pulmonary disease with (acute) exacerbation; I13.0 Hypertensive heart and chronic kidney disease with heart failure and stage 1 through stage 4 chronic kidney disease, or unspecified chronic kidney disease; I50.33 Acute on chronic diastolic (congestive) heart failure; E11.22 Type 2 diabetes mellitus with diabetic chronic kidney disease; N18.9 Chronic kidney disease, unspecified; J96.11 Chronic respiratory failure with hypoxia; I48.2 Chronic atrial fibrillation; J98.11 Atelectasis; K21.9 Gastro-esophageal reflux disease without esophagitis; D64.9 Anemia, unspecified; F32.9 Major depressive disorder, single episode, unspecified; I87.8 Other specified disorders of veins; E78.5 Hyperlipidemia, unspecified; G43.909 Migraine, unspecified, not intractable, without status migrainosus; E66.2 Morbid (severe) obesity with alveolar hypoventilation; I25.2 Old myocardial infarction; Z68.41 Body mass index [BMI] 40.0-44.9, adult; Z79.01 Long term (current) use of anticoagulants; Z79.82 Long term (current) use of aspirin; Z87.891 Personal history of nicotine dependence; Z99.81 Dependence on supplemental oxygen
CPT/HCPCS: 71010; 71020; 71250; 80048; 80053; 80202; 81003; 82565; 82945; 82947 91; 82948; 83605; 83615; 83615 91; 83880; 84155; 84157; 84484; 84520; 85025; 85027; 87040; 87070; 87075; 87116; 87205; 87206; 88108; 88305; 89051; 93005; 94640; 94640 76; 94660; 94799; 99281; 99284; J0692; J1815; J2920; J2930; J3370; J7050; J7512

== ENCOUNTER 2016-12-09 11:56 | Emergency (ER) | payer OTHER ==
[~2016-12-09] VITALS: Ht 182.9 cm; Wt 147.0 kg
[~2016-12-09 11:56] MED LIST changes: +CYCLOBENZAPRINE10 MG PO; +FLORASTOR250 MG PO; +LISINOPRIL20 MG PO; +LYRICA225 MG PO; +SOLARAZE 3% GEL50 GM TP
[2016-12-09 13:14] LABS: BASOPHIL COUNT 0.1 K/uL (0-0.1); EOSINOPHIL (%) 1.9 % (0-5); EOSINOPHIL COUNT 0.2 K/uL (0-0.3); HEMATOCRIT 29.7 % (38.0-50.0); IMMATURE GRANULOCYTE (%) 0.4 % (0.0-0.7); IMMATURE GRANULOCYTE COUNT 0.1 K/uL; INSTRUMENT ABS NEUTROPHIL CT 9.2 K/uL; LYMPHOCYTE COUNT 1.5 K/uL (1.0-2.8); MCH 24.2 PG (29.0-34.0); MCV 83.4 FL (86-99); MEAN PLAT.VOLUME 10.2 uM^3 (9.0-12.4); MONOCYTE (%) 7.6 % (3-12); MONOCYTE COUNT 0.9 K/uL (0-0.8); NEUTROPHIL (%) 77.2 % (45-76); NEUTROPHIL COUNT 9.2 K/uL (1.8-6.4); PLATELET COUNT 189 K/uL (156-360); RBC DIS.WIDTH-CV 17.3 % (11.8-14.6); RBC DIS.WIDTH-SD 53.2 % (39-53); RED BLOOD COUNT 3.56 M/uL (4.00-5.50)
[2016-12-09 13:32] LABS: INTER. NORMALIZED RATIO 1.9; PROTHROMBIN TIME 21.8 SEC (10.2-12.9)
[2016-12-09 13:35] LABS: PTT 36.1 SEC (25-37)
[2016-12-09 13:37] LABS: CHLORIDE 101 mEq/L (99-109); SODIUM 143 mEq/L (136-147)
[2016-12-09 13:46] LABS: TROP-I INTERPRETATION NEGATIVE; TROPONIN-I 0.02 ng/mL (0.0-0.30)
[2016-12-09 14:14] LABS: GLUCOSE 77 mg/dL (70-99)
[2016-12-09 14:16] LABS: ANION GAP 12 MEQ/L (2-14)
[2016-12-09 14:18] LABS: GFR ESTIMATE (CALCULATED) > 59 mL/min/
[2016-12-09 14:19] LABS: UREA NITROGEN (BUN) 13 mg/dL (9-23)
[2016-12-09 16:08] VITALS: BP 118/63
== END 2016-12-09 16:36 | disposition home or self-care (01) ==
LOC: EME 11:56
PROVIDERS: Emergency Medicine
DX: J90 Pleural effusion, not elsewhere classified (principal); D64.9 Anemia, unspecified; J44.9 Chronic obstructive pulmonary disease, unspecified; I10 Essential (primary) hypertension; E78.5 Hyperlipidemia, unspecified; E11.9 Type 2 diabetes mellitus without complications; Z79.4 Long term (current) use of insulin; Z79.01 Long term (current) use of anticoagulants; Z79.82 Long term (current) use of aspirin; Z87.891 Personal history of nicotine dependence
CPT/HCPCS: 71010; 71275; 80048; 83735; 83880; 84484; 85025; 85379; 85610; 85730; 93005; 99281; 99285

== ENCOUNTER 2016-12-23 12:32 | Inpatient (IN) | payer OTHER ==
[~2016-12-23] VITALS: Ht 177.8 cm; Wt 150.9 kg
[~2016-12-23 12:32] MED LIST changes: -BUPROPION XL150 MG PO; -LYRICA225 MG PO; +WELLBUTRIN75 MG PO
[2016-12-23 14:14] LABS: HEMATOCRIT 30.3 % (38.0-50.0); MCH 23.3 PG (29.0-34.0); MCV 80.4 FL (86-99); MEAN PLAT.VOLUME 10.2 uM^3 (9.0-12.4); PLATELET COUNT 158 K/uL (156-360); RBC DIS.WIDTH-CV 17.2 % (11.8-14.6); RBC DIS.WIDTH-SD 50.6 % (39-53); RED BLOOD COUNT 3.77 M/uL (4.00-5.50); WHITE BLOOD COUNT 14.9 K/uL (4.1-10.2)
[2016-12-23 14:25] LABS: CHLORIDE 100 mEq/L (99-109); POTASSIUM 3.9 mEq/L (3.7-5.4); SODIUM 140 mEq/L (136-147)
[2016-12-23 14:28] LABS: GLUCOSE 142 mg/dL (70-99)
[2016-12-23 14:29] LABS: ANION GAP 13 MEQ/L (2-14)
[2016-12-23 14:30] LABS: TOTAL BILIRUBIN 0.9 mg/dL (0.0-1.0)
[2016-12-23 14:31] LABS: ALKALINE PHOSPHATASE 96 IU/L (3-129); GFR ESTIMATE (CALCULATED) > 59 mL/min/
[2016-12-23 14:32] LABS: UREA NITROGEN (BUN) 11 mg/dL (9-23)
[2016-12-23 14:33] LABS: INFLUENZA A VIRAL ANTIGEN NEGATIVE; INFLUENZA B VIRAL ANTIGEN NEGATIVE
[2016-12-23 14:35] LABS: TROP-I INTERPRETATION NEGATIVE; TROPONIN-I 0.03 ng/mL (0.0-0.30)
[2016-12-23 17:33] LABS: ADD MIUA? YES; BILIRUBIN NEGATIVE; BLOOD MODERATE; COLOR YELLOW ((YELLOW)); GLUCOSE (STRIP) NEGATIVE; KETONES NEGATIVE; LEUKOCYTES MODERATE; NITRITE POSITIVE; PROTEIN (STRIP) 30; SPECIFIC GRAVITY 1.025 (1.000-1.030)
[2016-12-23 17:38] LABS: BACTERIA RARE /HPF; EPITHELIAL CELLS RARE /HPF; HYALINE CASTS 0-5 /LPF; MUCUS TRACE /LPF; RED BLOOD CELLS 20-30 /HPF (0-5); UCUL ADDED? YES; WHITE BLOOD CELLS 30-40 /HPF (0-5)
[2016-12-23] MEDS ORDERED: APRESOLINE25 MG PO (17:58)
[2016-12-23] MEDS ORDERED: VOLTAREN 1% GE100 GM TP (18:15)
[2016-12-23 21:01] LABS: POINT-OF-CARE METER ID UU14100415
[2016-12-23 21:48] VITALS: BP 147/71
[2016-12-23 22:14] LABS: POINT-OF-CARE METER ID UU14117124
[2016-12-23 23:12] VITALS: BP 152/70
[2016-12-24 04:19] VITALS: BP 126/61
[2016-12-24 06:27] LABS: POINT-OF-CARE METER ID UU14117124
[2016-12-24 06:30] LABS: EOSINOPHIL (%) 1.1 % (0-5); EOSINOPHIL COUNT 0.1 K/uL (0-0.3); HEMATOCRIT 29.3 % (38.0-50.0); IMMATURE GRANULOCYTE (%) 0.5 % (0.0-0.7); IMMATURE GRANULOCYTE COUNT 0.1 K/uL; INSTRUMENT ABS NEUTROPHIL CT 7.4 K/uL; LYMPHOCYTE COUNT 0.7 K/uL (1.0-2.8); MCH 24.4 PG (29.0-34.0); MCHC 29.4 G/DL (30.0-36.0); MONOCYTE (%) 15.4 % (3-12); MONOCYTE COUNT 1.5 K/uL (0-0.8); NEUTROPHIL (%) 75.5 % (45-76); NEUTROPHIL COUNT 7.4 K/uL (1.8-6.4); PLATELET COUNT 165 K/uL (156-360); RBC DIS.WIDTH-CV 17.5 % (11.8-14.6); RBC DIS.WIDTH-SD 53.1 % (39-53); RED BLOOD COUNT 3.53 M/uL (4.00-5.50); WHITE BLOOD COUNT 9.8 K/uL (4.1-10.2)
[2016-12-24 06:32] LABS: MEAN PLAT.VOLUME 12.4 uM^3 (9.0-12.4)
[2016-12-24 06:52] LABS: ANION GAP 6 MEQ/L (2-14); CHLORIDE 100 MEQ/L (99-109); GFR ESTIMATE (CALCULATED) > 59 mL/min/; GLUCOSE 148 mg/dL (70-99); POTASSIUM 3.6 MEQ/L (3.7-5.4); SAMPLE HEMOLYSIS CHECK 0; SAMPLE ICTERIC CHECK 0; SAMPLE LIPEMIA CHECK 0; SODIUM 138 MEQ/L (136-147); UREA NITROGEN (BUN) 13 mg/dL (9-23)
[2016-12-24 07:57] VITALS: BP 141/77
[2016-12-24 11:47] VITALS: BP 156/86
[2016-12-24 11:54] LABS: TYPE OF FLUID PLEURAL
[2016-12-24 12:04] LABS: POINT-OF-CARE METER ID UU14208753
[2016-12-24 12:34] LABS: BODY FLUID EOSINOPHILS 0 % (0-25); BODY FLUID RBC'S 6000 /MM^3 (0-100); BODY FLUID WBC'S 398 /MM^3 (0-500); COMMENT MANY MESOTHELIAL CELLS SEEN; MONONUCLEAR WBC'S 38 %; POLYNUCLEAR WBC'S 62 % (0-25)
[2016-12-24 13:03] LABS: BODY FLUID LDH 108 IU/L; BODY FLUID PROTEIN 3.1 G/DL
[2016-12-24 15:48] VITALS: BP 138/87
[2016-12-24 16:50] LABS: POINT-OF-CARE METER ID UU14208753
[2016-12-24 17:52] LABS: BASOPHIL COUNT 0.1 K/uL (0-0.1); EOSINOPHIL (%) 1.9 % (0-5); EOSINOPHIL COUNT 0.2 K/uL (0-0.3); HEMATOCRIT 29.2 % (38.0-50.0); IMMATURE GRANULOCYTE (%) 0.4 % (0.0-0.7); LYMPHOCYTE COUNT 0.6 K/uL (1.0-2.8); MCH 24.7 PG (29.0-34.0); MCHC 30.1 G/DL (30.0-36.0); MEAN PLAT.VOLUME 10.6 uM^3 (9.0-12.4); MONOCYTE (%) 13.8 % (3-12); MONOCYTE COUNT 1.3 K/uL (0-0.8); NEUTROPHIL (%) 76.7 % (45-76); PLATELET COUNT 149 K/uL (156-360); RBC DIS.WIDTH-CV 17.2 % (11.8-14.6); RBC DIS.WIDTH-SD 51.4 % (39-53); RED BLOOD COUNT 3.56 M/uL (4.00-5.50); WHITE BLOOD COUNT 9.2 K/uL (4.1-10.2)
[2016-12-24 18:10] LABS: POINT-OF-CARE METER ID UU14117124
[2016-12-24 19:59] LABS: POINT-OF-CARE METER ID UU14117124
[2016-12-24 20:20] VITALS: BP 142/69
[2016-12-24 21:47] LABS: POINT-OF-CARE METER ID UU14117124
[2016-12-24 23:53] VITALS: BP 141/83
[2016-12-25 04:10] VITALS: BP 137/71
[2016-12-25 06:39] LABS: POINT-OF-CARE METER ID UU14117124
[2016-12-25 07:12] LABS: HEMATOCRIT 29.3 % (38.0-50.0); MCH 23.2 PG (29.0-34.0); MCHC 28.3 G/DL (30.0-36.0); MCV 81.8 FL (86-99); MEAN PLAT.VOLUME 11.1 uM^3 (9.0-12.4); PLATELET COUNT 144 K/uL (156-360); RBC DIS.WIDTH-CV 17.2 % (11.8-14.6); RBC DIS.WIDTH-SD 51.3 % (39-53); RED BLOOD COUNT 3.58 M/uL (4.00-5.50); WHITE BLOOD COUNT 6.7 K/uL (4.1-10.2)
[2016-12-25 07:46] LABS: EOSINOPHIL (%) 2.5 % (0-5); EOSINOPHIL COUNT 0.2 K/uL (0-0.3); IMMATURE GRANULOCYTE (%) 0.6 % (0.0-0.7); INSTRUMENT ABS NEUTROPHIL CT 4.6 K/uL; LYMPHOCYTE COUNT 0.7 K/uL (1.0-2.8); MONOCYTE (%) 18.1 % (3-12); MONOCYTE COUNT 1.2 K/uL (0-0.8); NEUTROPHIL (%) 68.2 % (45-76); NEUTROPHIL COUNT 4.6 K/uL (1.8-6.4)
[2016-12-25 07:55] LABS: ANION GAP 6 MEQ/L (2-14); CHLORIDE 99 MEQ/L (99-109); GFR ESTIMATE (CALCULATED) > 59 mL/min/; POTASSIUM 3.5 MEQ/L (3.7-5.4); SAMPLE HEMOLYSIS CHECK 0; SAMPLE ICTERIC CHECK 0; SAMPLE LIPEMIA CHECK 0; SODIUM 138 MEQ/L (136-147); UREA NITROGEN (BUN) 10 mg/dL (9-23)
[2016-12-25 07:56] LABS: GLUCOSE 88 mg/dL (70-99)
[2016-12-25 08:13] VITALS: BP 128/62
[2016-12-25 11:41] VITALS: BP 141/71
[2016-12-25 15:49] VITALS: BP 137/69
[2016-12-25 16:08] LABS: POINT-OF-CARE METER ID UU14117124
[2016-12-25 19:12] VITALS: BP 143/67
[2016-12-25 23:28] VITALS: BP 141/59
[2016-12-26 03:04] VITALS: BP 162/75
[2016-12-26 06:37] LABS: POINT-OF-CARE METER ID UU14188577
[2016-12-26 06:54] LABS: EOSINOPHIL (%) 2.7 % (0-5); EOSINOPHIL COUNT 0.2 K/uL (0-0.3); HEMATOCRIT 26.8 % (38.0-50.0); IMMATURE GRANULOCYTE (%) 0.5 % (0.0-0.7); INSTRUMENT ABS NEUTROPHIL CT 3.5 K/uL; LYMPHOCYTE COUNT 0.7 K/uL (1.0-2.8); MCH 22.8 PG (29.0-34.0); MCHC 28.4 G/DL (30.0-36.0); MCV 80.5 FL (86-99); MEAN PLAT.VOLUME 10.6 uM^3 (9.0-12.4); MONOCYTE (%) 19.9 % (3-12); MONOCYTE COUNT 1.1 K/uL (0-0.8); NEUTROPHIL (%) 63.7 % (45-76); NEUTROPHIL COUNT 3.5 K/uL (1.8-6.4); PLATELET COUNT 127 K/uL (156-360); RBC DIS.WIDTH-CV 17.1 % (11.8-14.6); RBC DIS.WIDTH-SD 50.4 % (39-53); RED BLOOD COUNT 3.33 M/uL (4.00-5.50); WHITE BLOOD COUNT 5.5 K/uL (4.1-10.2)
[2016-12-26 07:24] LABS: ANION GAP 5 MEQ/L (2-14); CHLORIDE 99 MEQ/L (99-109); GFR ESTIMATE (CALCULATED) > 59 mL/min/; GLUCOSE 109 mg/dL (70-99); POTASSIUM 3.8 MEQ/L (3.7-5.4); SAMPLE HEMOLYSIS CHECK 0; SAMPLE ICTERIC CHECK 0; SAMPLE LIPEMIA CHECK 0; SODIUM 138 MEQ/L (136-147); UREA NITROGEN (BUN) 9 mg/dL (9-23)
[2016-12-26 07:30] VITALS: BP 138/79
[2016-12-26 11:36] LABS: POINT-OF-CARE METER ID UU14117124
[2016-12-26 12:04] VITALS: BP 170/80
[2016-12-26 15:54] VITALS: BP 144/81
[2016-12-26 16:44] LABS: POINT-OF-CARE METER ID UU14117124
[2016-12-26 19:52] VITALS: BP 160/85
[2016-12-26 23:23] VITALS: BP 143/77
[2016-12-27 03:56] VITALS: BP 149/79
[2016-12-27 06:36] LABS: POINT-OF-CARE METER ID UU14208753
[2016-12-27 08:07] VITALS: BP 170/80
[2016-12-27 09:39] LABS: BASOPHIL COUNT 0.1 K/uL (0-0.1); EOSINOPHIL (%) 3.5 % (0-5); EOSINOPHIL COUNT 0.2 K/uL (0-0.3); HEMATOCRIT 28.5 % (38.0-50.0); IMMATURE GRANULOCYTE (%) 0.6 % (0.0-0.7); INSTRUMENT ABS NEUTROPHIL CT 4.8 K/uL; LYMPHOCYTE COUNT 0.7 K/uL (1.0-2.8); MCH 23.7 PG (29.0-34.0); MCHC 29.5 G/DL (30.0-36.0); MCV 80.5 FL (86-99); MONOCYTE (%) 11.7 % (3-12); MONOCYTE COUNT 0.8 K/uL (0-0.8); NEUTROPHIL (%) 72.5 % (45-76); NEUTROPHIL COUNT 4.8 K/uL (1.8-6.4); PLATELET COUNT 152 K/uL (156-360); RBC DIS.WIDTH-CV 17.2 % (11.8-14.6); RED BLOOD COUNT 3.54 M/uL (4.00-5.50); WHITE BLOOD COUNT 6.6 K/uL (4.1-10.2)
[2016-12-27 11:12] VITALS: BP 135/90
[2016-12-27 11:28] LABS: POINT-OF-CARE METER ID UU14208753
[2016-12-27 15:59] VITALS: BP 133/71
[2016-12-27 17:01] LABS: POINT-OF-CARE METER ID UU14208753
[2016-12-27 19:22] VITALS: BP 137/76
[2016-12-27 21:44] LABS: POINT-OF-CARE METER ID UU14188577
[2016-12-27 23:27] VITALS: BP 157/72
[2016-12-28 03:18] VITALS: BP 135/77
[2016-12-28 08:17] VITALS: BP 153/79
[2016-12-28 12:08] VITALS: BP 156/82
[2016-12-28 13:09] LABS: HEMATOCRIT 29.1 % (38.0-50.0); MCH 23.4 PG (29.0-34.0); MCHC 28.9 G/DL (30.0-36.0); MCV 81.1 FL (86-99); MEAN PLAT.VOLUME 10.8 uM^3 (9.0-12.4); PLATELET COUNT 186 K/uL (156-360); RBC DIS.WIDTH-CV 17.3 % (11.8-14.6); RBC DIS.WIDTH-SD 50.9 % (39-53); RED BLOOD COUNT 3.59 M/uL (4.00-5.50)
[2016-12-28 13:30] LABS: ALKALINE PHOSPHATASE 126 IU/L (3-129); ANION GAP 8 MEQ/L (2-14); CHLORIDE 99 MEQ/L (99-109); GFR ESTIMATE (CALCULATED) > 59 mL/min/; GLUCOSE 157 mg/dL (70-99); POTASSIUM 4.2 MEQ/L (3.7-5.4); SAMPLE HEMOLYSIS CHECK 0; SAMPLE ICTERIC CHECK 0; SAMPLE LIPEMIA CHECK 0; SODIUM 140 MEQ/L (136-147); TOTAL BILIRUBIN 0.5 MG/DL (0.0-1.0); UREA NITROGEN (BUN) 10 mg/dL (9-23)
[2016-12-28 16:12] LABS: POINT-OF-CARE METER ID UU14208753
[2016-12-28 16:27] VITALS: BP 132/88
[2016-12-28 20:00] VITALS: BP 144/66
[2016-12-28 21:59] LABS: POINT-OF-CARE METER ID UU14208753
[2016-12-29 00:03] VITALS: BP 149/74
[2016-12-29 07:02] LABS: POINT-OF-CARE METER ID UU14208753
[2016-12-29 08:00] VITALS: BP 133/87
[2016-12-29 08:22] LABS: BASOPHIL COUNT 0.1 K/uL (0-0.1); EOSINOPHIL (%) 3.3 % (0-5); EOSINOPHIL COUNT 0.3 K/uL (0-0.3); HEMATOCRIT 28.7 % (38.0-50.0); IMMATURE GRANULOCYTE COUNT 0.2 K/uL; INSTRUMENT ABS NEUTROPHIL CT 6.8 K/uL; MCHC 28.6 G/DL (30.0-36.0); MCV 80.6 FL (86-99); MEAN PLAT.VOLUME 11.2 uM^3 (9.0-12.4); MONOCYTE (%) 10.3 % (3-12); NEUTROPHIL (%) 73.4 % (45-76); NEUTROPHIL COUNT 6.8 K/uL (1.8-6.4); PLATELET COUNT 210 K/uL (156-360); RBC DIS.WIDTH-CV 17.4 % (11.8-14.6); RBC DIS.WIDTH-SD 51.6 % (39-53); RED BLOOD COUNT 3.56 M/uL (4.00-5.50); WHITE BLOOD COUNT 9.3 K/uL (4.1-10.2)
[2016-12-29 08:50] LABS: ANION GAP 8 MEQ/L (2-14); CHLORIDE 102 MEQ/L (99-109); GFR ESTIMATE (CALCULATED) > 59 mL/min/; SAMPLE HEMOLYSIS CHECK 0; SAMPLE ICTERIC CHECK 0; SAMPLE LIPEMIA CHECK 0; SODIUM 143 MEQ/L (136-147); UREA NITROGEN (BUN) 10 mg/dL (9-23)
[2016-12-29 08:55] LABS: GLUCOSE 115 mg/dL (70-99)
[2016-12-29 11:57] LABS: POINT-OF-CARE METER ID UU14117124
[2016-12-29 15:56] VITALS: BP 131/62
[2016-12-29 16:46] LABS: POINT-OF-CARE METER ID UU14117124
[2016-12-29 20:16] VITALS: BP 138/77
[2016-12-29 21:20] LABS: POINT-OF-CARE METER ID UU14117124
[2016-12-30] VITALS (9 sets, daily range): BP systolic 132–156; BP diastolic 64–77
[2016-12-30 06:44] LABS: POINT-OF-CARE METER ID UU14208753
[2016-12-30 06:45] LABS: BASOPHIL COUNT 0.1 K/uL (0-0.1); EOSINOPHIL (%) 0.4 % (0-5); HEMATOCRIT 28.7 % (38.0-50.0); IMMATURE GRANULOCYTE (%) 1.8 % (0.0-0.7); IMMATURE GRANULOCYTE COUNT 0.2 K/uL; INSTRUMENT ABS NEUTROPHIL CT 9.5 K/uL; LYMPHOCYTE COUNT 0.8 K/uL (1.0-2.8); MCH 23.7 PG (29.0-34.0); MCHC 29.3 G/DL (30.0-36.0); MCV 80.8 FL (86-99); MEAN PLAT.VOLUME 10.8 uM^3 (9.0-12.4); MONOCYTE (%) 6.7 % (3-12); MONOCYTE COUNT 0.8 K/uL (0-0.8); NEUTROPHIL (%) 83.1 % (45-76); NEUTROPHIL COUNT 9.5 K/uL (1.8-6.4); PLATELET COUNT 220 K/uL (156-360); RBC DIS.WIDTH-CV 17.6 % (11.8-14.6); RED BLOOD COUNT 3.55 M/uL (4.00-5.50); WHITE BLOOD COUNT 11.4 K/uL (4.1-10.2)
[2016-12-30 07:11] LABS: ALKALINE PHOSPHATASE 125 IU/L (3-129); ANION GAP 10 MEQ/L (2-14); CHLORIDE 98 MEQ/L (99-109); GFR ESTIMATE (CALCULATED) > 59 mL/min/; POTASSIUM 4.6 MEQ/L (3.7-5.4); SAMPLE HEMOLYSIS CHECK 0; SAMPLE ICTERIC CHECK 0; SAMPLE LIPEMIA CHECK 0; SODIUM 139 MEQ/L (136-147); TOTAL BILIRUBIN 0.5 MG/DL (0.0-1.0); UREA NITROGEN (BUN) 10 mg/dL (9-23)
[2016-12-30 07:12] LABS: GLUCOSE 282 mg/dL (70-99)
[2016-12-30 11:38] LABS: POINT-OF-CARE METER ID UU14208753
[2016-12-30 21:22] LABS: POINT-OF-CARE METER ID UU14208753
[2016-12-31 02:52] VITALS: BP 140/78
[2016-12-31 06:31] LABS: POINT-OF-CARE METER ID UU14188577
[2016-12-31 07:03] LABS: IMM.RETIC FRACTION 28.2 % (3-19); RETICULOCYTE COUNT 2.5 % (0.5-1.8)
[2016-12-31 07:07] LABS: EOSINOPHIL (%) 0.8 % (0-5); EOSINOPHIL COUNT 0.1 K/uL (0-0.3); HEMATOCRIT 28.5 % (38.0-50.0); IMMATURE GRANULOCYTE (%) 1.3 % (0.0-0.7); IMMATURE GRANULOCYTE COUNT 0.2 K/uL; LYMPHOCYTE COUNT 1.5 K/uL (1.0-2.8); MCH 23.4 PG (29.0-34.0); MCHC 29.1 G/DL (30.0-36.0); MCV 80.3 FL (86-99); MEAN PLAT.VOLUME 10.7 uM^3 (9.0-12.4); MONOCYTE (%) 9.1 % (3-12); MONOCYTE COUNT 1.3 K/uL (0-0.8); NEUTROPHIL (%) 77.9 % (45-76); PLATELET COUNT 253 K/uL (156-360); RBC DIS.WIDTH-CV 17.6 % (11.8-14.6); RBC DIS.WIDTH-SD 51.4 % (39-53); RED BLOOD COUNT 3.55 M/uL (4.00-5.50); WHITE BLOOD COUNT 14.1 K/uL (4.1-10.2)
[2016-12-31 07:45] VITALS: BP 131/71
[2016-12-31 07:46] LABS: ANION GAP 10 MEQ/L (2-14); CHLORIDE 96 MEQ/L (99-109); FERRITIN 16 NG/ML (22-322); GFR ESTIMATE (CALCULATED) > 59 mL/min/; GLUCOSE 214 mg/dL (70-99); IRON 20 MCG/DL (35-150); SAMPLE HEMOLYSIS CHECK 0; SAMPLE ICTERIC CHECK 0; SAMPLE LIPEMIA CHECK 0; SODIUM 137 MEQ/L (136-147); UREA NITROGEN (BUN) 15 mg/dL (9-23)
[2016-12-31 07:48] LABS: POTASSIUM 3.6 MEQ/L (3.7-5.4)
[2016-12-31 11:34] VITALS: BP 143/68
[2016-12-31 11:38] LABS: POINT-OF-CARE METER ID UU14117124
[2016-12-31 16:12] VITALS: BP 135/60
[2016-12-31 16:14] LABS: POINT-OF-CARE METER ID UU14208753
[2016-12-31 19:46] VITALS: BP 137/76
[2016-12-31 22:13] LABS: POINT-OF-CARE METER ID UU14117124
[2016-12-31 23:22] VITALS: BP 154/78
[2017-01-01 04:34] VITALS: BP 133/66
[2017-01-01 05:25] LABS: BASOPHIL COUNT 0.1 K/uL (0-0.1); EOSINOPHIL (%) 1.8 % (0-5); EOSINOPHIL COUNT 0.3 K/uL (0-0.3); HEMATOCRIT 28.8 % (38.0-50.0); IMMATURE GRANULOCYTE COUNT 0.1 K/uL; INSTRUMENT ABS NEUTROPHIL CT 10.5 K/uL; LYMPHOCYTE COUNT 1.7 K/uL (1.0-2.8); MCH 22.8 PG (29.0-34.0); MCHC 28.1 G/DL (30.0-36.0); MCV 81.1 FL (86-99); MEAN PLAT.VOLUME 10.8 uM^3 (9.0-12.4); MONOCYTE (%) 9.8 % (3-12); MONOCYTE COUNT 1.4 K/uL (0-0.8); NEUTROPHIL (%) 74.7 % (45-76); NEUTROPHIL COUNT 10.5 K/uL (1.8-6.4); NRBC (%) 0.1 /100 WBC (0-0); PLATELET COUNT 248 K/uL (156-360); RBC DIS.WIDTH-CV 17.6 % (11.8-14.6); RBC DIS.WIDTH-SD 51.9 % (39-53); RED BLOOD COUNT 3.55 M/uL (4.00-5.50)
[2017-01-01 05:55] LABS: ALKALINE PHOSPHATASE 110 IU/L (3-129); ANION GAP 7 MEQ/L (2-14); CHLORIDE 99 MEQ/L (99-109); GFR ESTIMATE (CALCULATED) > 59 mL/min/; GLUCOSE 232 mg/dL (70-99); POTASSIUM 3.9 MEQ/L (3.7-5.4); SAMPLE HEMOLYSIS CHECK 0; SAMPLE ICTERIC CHECK 0; SAMPLE LIPEMIA CHECK 0; SODIUM 142 MEQ/L (136-147); TOTAL BILIRUBIN 0.4 MG/DL (0.0-1.0); UREA NITROGEN (BUN) 17 mg/dL (9-23)
[2017-01-01 06:56] LABS: POINT-OF-CARE METER ID UU14208753
[2017-01-01 07:46] VITALS: BP 148/73
[2017-01-01 11:56] LABS: POINT-OF-CARE METER ID UU14117124
[2017-01-01 12:36] VITALS: BP 130/64
[2017-01-01 17:26] VITALS: BP 126/63
[2017-01-01 19:30] VITALS: BP 136/67
[2017-01-01 21:50] LABS: POINT-OF-CARE METER ID UU14208753
[2017-01-02 00:07] VITALS: BP 134/63
[2017-01-02 04:16] VITALS: BP 110/66
[2017-01-02 06:35] LABS: POINT-OF-CARE METER ID UU14208753
[2017-01-02 07:07] LABS: BASOPHIL COUNT 0.1 K/uL (0-0.1); EOSINOPHIL (%) 2.3 % (0-5); EOSINOPHIL COUNT 0.3 K/uL (0-0.3); HEMATOCRIT 29.2 % (38.0-50.0); IMMATURE GRANULOCYTE (%) 1.3 % (0.0-0.7); IMMATURE GRANULOCYTE COUNT 0.2 K/uL; INSTRUMENT ABS NEUTROPHIL CT 9.7 K/uL; LYMPHOCYTE COUNT 1.4 K/uL (1.0-2.8); MCH 24.1 PG (29.0-34.0); MCHC 29.5 G/DL (30.0-36.0); MCV 81.8 FL (86-99); MEAN PLAT.VOLUME 11.4 uM^3 (9.0-12.4); MONOCYTE (%) 10.3 % (3-12); MONOCYTE COUNT 1.4 K/uL (0-0.8); NEUTROPHIL (%) 74.6 % (45-76); NEUTROPHIL COUNT 9.7 K/uL (1.8-6.4); PLATELET COUNT 236 K/uL (156-360); RBC DIS.WIDTH-CV 17.7 % (11.8-14.6); RED BLOOD COUNT 3.57 M/uL (4.00-5.50); WHITE BLOOD COUNT 13.1 K/uL (4.1-10.2)
[2017-01-02 07:33] LABS: ANION GAP 10 MEQ/L (2-14); CHLORIDE 99 MEQ/L (99-109); GFR ESTIMATE (CALCULATED) > 59 mL/min/; GLUCOSE 197 mg/dL (70-99); POTASSIUM 4.6 MEQ/L (3.7-5.4); SAMPLE HEMOLYSIS CHECK 0; SAMPLE ICTERIC CHECK 0; SAMPLE LIPEMIA CHECK 0; SODIUM 143 MEQ/L (136-147); UREA NITROGEN (BUN) 15 mg/dL (9-23)
[2017-01-02 08:13] VITALS: BP 133/70
[2017-01-02 11:42] LABS: POINT-OF-CARE METER ID UU14208753
[2017-01-02 12:01] VITALS: BP 138/63
[2017-01-02 15:20] VITALS: BP 146/69
[2017-01-02 17:17] LABS: POINT-OF-CARE METER ID UU14117124
[2017-01-02 19:08] VITALS: BP 161/73
[2017-01-02 22:02] LABS: POINT-OF-CARE METER ID UU14188577
[2017-01-03] VITALS (8 sets, daily range): BP systolic 129–174; BP diastolic 62–86
[2017-01-03 06:37] LABS: POINT-OF-CARE METER ID UU14117124
[2017-01-03 11:51] LABS: POINT-OF-CARE METER ID UU14117124
[2017-01-03 15:43] LABS: POINT-OF-CARE METER ID UU14117124
[2017-01-03 21:28] LABS: POINT-OF-CARE METER ID UU14208753
[2017-01-04 03:36] VITALS: BP 145/69
[2017-01-04 03:48] LABS: POINT-OF-CARE METER ID UU14117124
[2017-01-04 06:06] LABS: POINT-OF-CARE METER ID UU14117124
[2017-01-04 06:53] LABS: BASOPHIL COUNT 0.1 K/uL (0-0.1); EOSINOPHIL (%) 2.2 % (0-5); EOSINOPHIL COUNT 0.3 K/uL (0-0.3); HEMATOCRIT 28.6 % (38.0-50.0); IMMATURE GRANULOCYTE (%) 0.6 % (0.0-0.7); IMMATURE GRANULOCYTE COUNT 0.1 K/uL; LYMPHOCYTE COUNT 1.3 K/uL (1.0-2.8); MCH 22.8 PG (29.0-34.0); MCHC 28.3 G/DL (30.0-36.0); MCV 80.3 FL (86-99); MEAN PLAT.VOLUME 10.6 uM^3 (9.0-12.4); MONOCYTE (%) 8.3 % (3-12); MONOCYTE COUNT 1.2 K/uL (0-0.8); NEUTROPHIL (%) 78.8 % (45-76); PLATELET COUNT 267 K/uL (156-360); RBC DIS.WIDTH-SD 52.5 % (39-53); RED BLOOD COUNT 3.56 M/uL (4.00-5.50); WHITE BLOOD COUNT 13.9 K/uL (4.1-10.2)
[2017-01-04 07:32] LABS: ALKALINE PHOSPHATASE 108 IU/L (3-129); ANION GAP 7 MEQ/L (2-14); CHLORIDE 98 MEQ/L (99-109); GFR ESTIMATE (CALCULATED) > 59 mL/min/; POTASSIUM 4.1 MEQ/L (3.7-5.4); SAMPLE HEMOLYSIS CHECK 0; SAMPLE ICTERIC CHECK 0; SAMPLE LIPEMIA CHECK 0; SODIUM 142 MEQ/L (136-147); UREA NITROGEN (BUN) 14 mg/dL (9-23)
[2017-01-04 07:34] LABS: GLUCOSE 70 mg/dL (70-99); TOTAL BILIRUBIN 0.5 MG/DL (0.0-1.0)
[2017-01-04 08:13] VITALS: BP 129/74
[2017-01-04 13:17] VITALS: BP 147/81
[2017-01-04 13:35] LABS: POINT-OF-CARE METER ID UU14117124
[2017-01-04 16:10] VITALS: BP 135/73
[2017-01-04 16:33] LABS: POINT-OF-CARE METER ID UU14188577
[2017-01-04 19:43] VITALS: BP 149/67
[2017-01-04 21:24] LABS: POINT-OF-CARE METER ID UU14117124
[2017-01-04 23:16] VITALS: BP 147/64
[2017-01-05 04:05] VITALS: BP 144/69
[2017-01-05 08:08] VITALS: BP 147/80
[2017-01-05 11:58] LABS: POINT-OF-CARE METER ID UU14117124
[2017-01-05 12:12] VITALS: BP 157/69
[2017-01-05 16:55] LABS: POINT-OF-CARE METER ID UU14117124
[2017-01-05 17:23] VITALS: BP 141/63
[2017-01-05 19:10] VITALS: BP 142/76
[2017-01-05 21:34] LABS: POINT-OF-CARE METER ID UU14117124
[2017-01-05 23:30] VITALS: BP 140/74
[2017-01-06 03:32] VITALS: BP 135/65
[2017-01-06 06:09] LABS: HEMATOCRIT 28.6 % (38.0-50.0); MCH 22.9 PG (29.0-34.0); MCHC 28.7 G/DL (30.0-36.0); MCV 79.9 FL (86-99); MEAN PLAT.VOLUME 9.8 uM^3 (9.0-12.4); PLATELET COUNT 255 K/uL (156-360); RBC DIS.WIDTH-CV 18.4 % (11.8-14.6); RBC DIS.WIDTH-SD 52.9 % (39-53); RED BLOOD COUNT 3.58 M/uL (4.00-5.50)
[2017-01-06 06:41] LABS: POINT-OF-CARE METER ID UU14208753
[2017-01-06 06:44] LABS: ANION GAP 6 MEQ/L (2-14); CHLORIDE 98 MEQ/L (99-109); GFR ESTIMATE (CALCULATED) > 59 mL/min/; GLUCOSE 145 mg/dL (70-99); POTASSIUM 3.9 MEQ/L (3.7-5.4); SAMPLE HEMOLYSIS CHECK 0; SAMPLE ICTERIC CHECK 0; SAMPLE LIPEMIA CHECK 0; SODIUM 140 MEQ/L (136-147); UREA NITROGEN (BUN) 14 mg/dL (9-23)
[2017-01-06 07:48] VITALS: BP 131/65
[2017-01-06] MEDS ORDERED: FERROUS SULFAT325 MG PO (09:42)
[2017-01-06] MEDS ORDERED: LEVAQUIN750 MG PO (09:44)
[2017-01-06 11:22] VITALS: BP 134/63
== END 2017-01-06 13:26 | disposition home health service (06) | DRG 871 ==
LOC: EME 12:32 → EDOF 18:37 → 3EAST 18:37 → ENRESERV 18:47 → 3EAST 21:23
PROVIDERS: Emergency Medicine; Hospitalist; Internal Medicine
PROC: 0W993ZX Drainage of Right Pleural Cavity, Percutaneous Approach, Diagnostic (ICD-10-PCS; principal; 2016-12-24)
DX: A41.9 Sepsis, unspecified organism (principal); J15.0 Pneumonia due to Klebsiella pneumoniae; J44.0 Chronic obstructive pulmonary disease with (acute) lower respiratory infection; J96.11 Chronic respiratory failure with hypoxia; J44.1 Chronic obstructive pulmonary disease with (acute) exacerbation; N39.0 Urinary tract infection, site not specified; J86.9 Pyothorax without fistula; E66.2 Morbid (severe) obesity with alveolar hypoventilation; I50.32 Chronic diastolic (congestive) heart failure; I48.2 Chronic atrial fibrillation; I47.9 Paroxysmal tachycardia, unspecified; I48.0 Paroxysmal atrial fibrillation; J96.21 Acute and chronic respiratory failure with hypoxia; E11.649 Type 2 diabetes mellitus with hypoglycemia without coma; I11.0 Hypertensive heart disease with heart failure; J98.11 Atelectasis; E78.5 Hyperlipidemia, unspecified; I89.0 Lymphedema, not elsewhere classified; I27.20 Pulmonary hypertension, unspecified; I27.29 Other secondary pulmonary hypertension; B96.1 Klebsiella pneumoniae [K. pneumoniae] as the cause of diseases classified elsewhere; E87.6 Hypokalemia; D50.9 Iron deficiency anemia, unspecified; E87.1 Hypo-osmolality and hyponatremia; K21.9 Gastro-esophageal reflux disease without esophagitis; K75.81 Nonalcoholic steatohepatitis (NASH); I25.10 Atherosclerotic heart disease of native coronary artery without angina pectoris; I87.8 Other specified disorders of veins; E11.65 Type 2 diabetes mellitus with hyperglycemia; Z91.14 Patient's other noncompliance with medication regimen; Z68.42 Body mass index [BMI] 45.0-49.9, adult; Z99.81 Dependence on supplemental oxygen; Z91.19 Patient's noncompliance with other medical treatment and regimen; Z82.5 Family history of asthma and other chronic lower respiratory diseases; Z87.891 Personal history of nicotine dependence; Z79.01 Long term (current) use of anticoagulants; Z80.0 Family history of malignant neoplasm of digestive organs
CPT/HCPCS: 71010; 71020; 71275; 76942; 78452; 80048; 80053; 81003; 82607; 82728; 82746; 82945; 82948; 83540; 83605; 83615 91; 83880; 84157; 84466; 84484; 85025; 85025 91; 85027; 85045; 87040; 87070; 87075; 87077; 87086; 87186; 87205; 87502; 87801; 88108; 89051; 93005; 93017; 94640; 94640 76; 94660; 94760; 94799; 99202; 99281; 99285; A9500; J0456; J0692; J0696; J1644; J1815; J1940; J2785; J3370; J7040; J7050; J7512

== ENCOUNTER 2017-04-17 10:19 | Emergency (ER) | payer OTHER ==
[~2017-04-17] VITALS: Ht 182.9 cm; Wt 148.9 kg
[~2017-04-17 10:19] MED LIST changes: +FERROUS SULFAT325 MG PO; +VOLTAREN 1% GE100 GM TP
[2017-04-17 11:12] LABS: HEMATOCRIT 26.4 % (38.0-50.0); HEMOGLOBIN 7.4 G/DL (12.5-16.6); MCH 20.2 PG (29.0-34.0); MCV 71.9 FL (86-99); PLATELET COUNT 237 K/uL (156-360); RBC DIS.WIDTH-SD 46.6 % (39-53); RED BLOOD COUNT 3.67 M/uL (4.00-5.50); WHITE BLOOD COUNT 7.8 K/uL (4.1-10.2)
[2017-04-17 11:15] LABS: BASE EXCESS 16.1 mEq/L (-3 to +3); BICARBONATE 41.5 mEq/L (22-26); CARBOXY HGB 1.9 % (0-5); METHEMOGLOBIN 0.9 % (0-1.5); PCO2 57 mm Hg (35-45); PO2 74 mm Hg (80-100); pH 7.47 (7.35-7.45)
[2017-04-17 11:16] LABS: COMMENTS - BLOOD GASES NAC+; DEVICE CANNULA; O2 FLOW 3 L/MIN; SITE RR
[2017-04-17 11:16] LABS: ALBUMIN 3.7 g/dL (3.2-4.8); CHLORIDE 93 mEq/L (99-109); POTASSIUM 3.8 mEq/L (3.7-5.4); SODIUM 140 mEq/L (136-147)
[2017-04-17 11:18] LABS: GLUCOSE 147 mg/dL (70-99); TOTAL PROTEIN 7.2 g/dL (6.4-8.3)
[2017-04-17 11:20] LABS: TOTAL BILIRUBIN 0.6 mg/dL (0.0-1.0)
[2017-04-17 11:22] LABS: ALKALINE PHOSPHATASE 81 IU/L (3-129); CREATININE 1.2 mg/dL (0.6-1.3); GFR ESTIMATE (CALCULATED) > 59 mL/min/ (58.99-99999)
[2017-04-17 11:23] LABS: UREA NITROGEN (BUN) 19 mg/dL (9-23)
[2017-04-17 11:24] LABS: AST (GOT) 18 IU/L (2-34)
[2017-04-17 11:25] LABS: ALT (GPT) 7 IU/L (3-49)
[2017-04-17 11:29] LABS: TROP-I INTERPRETATION NEGATIVE; TROPONIN-I 0.01 ng/mL (0.0-0.30)
[2017-04-17 13:48] VITALS: BP 118/75; BP 132/70
[2017-04-17 14:03] VITALS: BP 119/69
[2017-04-17 14:48] VITALS: BP 129/70
[2017-04-17 15:53] VITALS: BP 126/61
[2017-04-17 17:35] VITALS: BP 116/59
== END 2017-04-17 17:35 | disposition home or self-care (01) ==
LOC: EME 10:19
PROVIDERS: Emergency Medicine
DX: D64.9 Anemia, unspecified (principal); J44.9 Chronic obstructive pulmonary disease, unspecified; I48.2 Chronic atrial fibrillation; I50.9 Heart failure, unspecified; I11.0 Hypertensive heart disease with heart failure; Z86.73 Personal history of transient ischemic attack (TIA), and cerebral infarction without residual deficits; K21.9 Gastro-esophageal reflux disease without esophagitis; E11.9 Type 2 diabetes mellitus without complications; I25.10 Atherosclerotic heart disease of native coronary artery without angina pectoris; G47.30 Sleep apnea, unspecified; F41.9 Anxiety disorder, unspecified; F32.9 Major depressive disorder, single episode, unspecified; E78.5 Hyperlipidemia, unspecified; Z79.4 Long term (current) use of insulin; Z79.82 Long term (current) use of aspirin; Z87.891 Personal history of nicotine dependence
CPT/HCPCS: 36600; 71045; 80053; 82803; 83880; 84484; 85027; 86850; 86900; 86901; 86920; 93005; 94640; 99281; 99285; J1940; P9016

== ENCOUNTER 2017-06-04 23:09 | Observation (INO) | payer OTHER ==
[~2017-06-04] VITALS: Ht 180.3 cm; Wt 139.7 kg
[~2017-06-04 23:09] MED LIST changes: -SOLARAZE 3% GEL50 GM TP; -WELLBUTRIN75 MG PO
[2017-06-04 23:49] LABS: BASE EXCESS 17.7 mEq/L (-3 to +3); BICARBONATE 43.4 mEq/L (22-26); CARBOXY HGB 2.2 % (0-5); PCO2 57 mm Hg (35-45); pH 7.49 (7.35-7.45)
[2017-06-04 23:50] LABS: COMMENTS - BLOOD GASES C+A+; DEVICE NC; O2 FLOW 3 L/MIN; PO2 59 mm Hg (80-100); SITE RR
[2017-06-05] LABS: HEMATOCRIT 33.7 % (38.0-50.0); HEMOGLOBIN 10.1 G/DL (12.5-16.6); MCH 24.3 PG (29.0-34.0); MCV 81.2 FL (86-99); PLATELET COUNT 233 K/uL (156-360); RED BLOOD COUNT 4.15 M/uL (4.00-5.50); WHITE BLOOD COUNT 9.9 K/uL (4.1-10.2)
[2017-06-05 00:08] LABS: INTER. NORMALIZED RATIO 2.1
[2017-06-05 00:11] LABS: ALBUMIN 3.6 g/dL (3.2-4.8); CHLORIDE 90 mEq/L (99-109); POTASSIUM 3.5 mEq/L (3.7-5.4); PTT 39.2 SEC (25-37); SODIUM 138 mEq/L (136-147)
[2017-06-05 00:12] LABS: MAGNESIUM 2.2 mg/dL (1.3-2.7)
[2017-06-05 00:13] LABS: GLUCOSE 198 mg/dL (70-99)
[2017-06-05 00:14] LABS: TOTAL PROTEIN 7.8 g/dL (6.4-8.3)
[2017-06-05 00:15] LABS: TOTAL BILIRUBIN 0.9 mg/dL (0.0-1.0)
[2017-06-05 00:17] LABS: ALKALINE PHOSPHATASE 103 IU/L (3-129); CREATININE 1.2 mg/dL (0.6-1.3); GFR ESTIMATE (CALCULATED) > 59 mL/min/ (58.99-99999)
[2017-06-05 00:18] LABS: UREA NITROGEN (BUN) 24 mg/dL (9-23)
[2017-06-05 00:19] LABS: AST (GOT) 53 IU/L (2-34)
[2017-06-05 00:20] LABS: ALT (GPT) 20 IU/L (3-49)
[2017-06-05 00:21] LABS: TROP-I INTERPRETATION NEGATIVE; TROPONIN-I 0.02 ng/mL (0.0-0.30)
[2017-06-05 01:25] LABS: ANISOCYTOSIS 1+; BASOPHIL COUNT 0.1 K/uL (0-0.1); EOSINOPHIL (%) 3.6 % (0-5); EOSINOPHIL COUNT 0.4 K/uL (0-0.3); HYPOCHROMASIA 1+; IMMATURE GRANULOCYTE (%) 0.7 % (0.0-0.7); LYMPHOCYTE (%) 11.6 % (15-42); LYMPHOCYTE COUNT 1.2 K/uL (1.0-2.8); MICROCYTOSIS 1+; MONOCYTE (%) 10.8 % (3-12); MONOCYTE COUNT 1.1 K/uL (0-0.8); NEUTROPHIL (%) 72.3 % (45-76); NEUTROPHIL COUNT 7.2 K/uL (1.8-6.4); OVALOCYTES 1+; POIKILOCYTOSIS 1+; POLYCHROMASIA 2+
[2017-06-05] MEDS ORDERED: IRON325 M1 PO (01:25)
[2017-06-05] MEDS ORDERED: LYRICA75 MG PO (01:27)
[2017-06-05] MEDS ORDERED: METOLAZONE2.5 MG PO (01:29)
[2017-06-05] MEDS ORDERED: OMEPRAZOLE40 M1 PO (01:29)
[2017-06-05] MEDS ORDERED: POTASSIUM-9999 MG PO (01:30)
[2017-06-05 02:26] LABS: APPEARANCE CLEAR ((CLEAR)); BILIRUBIN NEGATIVE; BLOOD NEGATIVE; COLOR YELLOW ((YELLOW)); GLUCOSE (STRIP) NEGATIVE; KETONES NEGATIVE; LEUKOCYTES NEGATIVE; NITRITE NEGATIVE; PROTEIN (STRIP) NEGATIVE; SPECIFIC GRAVITY 1.018 (1.000-1.030); UCUL ADDED? NO
[2017-06-05 07:22] VITALS: BP 158/72
[2017-06-05 08:25] VITALS: BP 127/58
[2017-06-05 11:51] VITALS: BP 160/87
[2017-06-05 20:00] VITALS: BP 112/58
[2017-06-06] VITALS: BP 122/60
[2017-06-06 05:25] LABS: HEMATOCRIT 32.6 % (38.0-50.0); HEMOGLOBIN 9.7 G/DL (12.5-16.6); MCH 24.4 PG (29.0-34.0); MCHC 29.8 G/DL (30.0-36.0); MCV 81.9 FL (86-99); PLATELET COUNT 184 K/uL (156-360); RED BLOOD COUNT 3.98 M/uL (4.00-5.50); WHITE BLOOD COUNT 8.5 K/uL (4.1-10.2)
[2017-06-06 06:07] LABS: ALBUMIN 3.4 G/DL (3.2-4.8); ALKALINE PHOSPHATASE 71 IU/L (3-129); ALT (GPT) 14 IU/L (3-49); AST (GOT) 32 IU/L (2-34); CHLORIDE 90 MEQ/L (99-109); CREATININE 1.1 MG/DL (0.6-1.3); GFR ESTIMATE (CALCULATED) > 59 mL/min/ (58.99-99999); GLUCOSE 138 mg/dL (70-99); POTASSIUM 3.6 MEQ/L (3.7-5.4); SODIUM 139 MEQ/L (136-147); TOTAL BILIRUBIN 0.9 MG/DL (0.0-1.0); TOTAL PROTEIN 6.7 G/DL (6.4-8.3); UREA NITROGEN (BUN) 22 mg/dL (9-23)
[2017-06-06 06:08] LABS: CARBON DIOXIDE (BICARBONATE) > 40.0 MEQ/L (20-31)
== END 2017-06-06 14:12 | disposition home or self-care (01) ==
LOC: EME 23:09 → EDOF 06-05 05:47 → ENRESERV 06-05 05:47 → 5WEST 06-05 07:07
PROVIDERS: Emergency Medicine; Internal Medicine
PROC: 0CJS8ZZ Inspection of Larynx, Via Natural or Artificial Opening Endoscopic (ICD-10-PCS; principal; 2017-06-05)
DX: J96.10 Chronic respiratory failure, unspecified whether with hypoxia or hypercapnia (principal); R04.0 Epistaxis; J44.9 Chronic obstructive pulmonary disease, unspecified; E11.9 Type 2 diabetes mellitus without complications; I11.0 Hypertensive heart disease with heart failure; I50.9 Heart failure, unspecified; I48.2 Chronic atrial fibrillation; G47.33 Obstructive sleep apnea (adult) (pediatric); E66.01 Morbid (severe) obesity due to excess calories; Z99.81 Dependence on supplemental oxygen; E78.5 Hyperlipidemia, unspecified; I89.0 Lymphedema, not elsewhere classified; Z82.49 Family history of ischemic heart disease and other diseases of the circulatory system; Z80.0 Family history of malignant neoplasm of digestive organs; Z82.5 Family history of asthma and other chronic lower respiratory diseases; Z84.1 Family history of disorders of kidney and ureter; Z87.891 Personal history of nicotine dependence; F10.11 Alcohol abuse, in remission; Z88.8 Allergy status to other drugs, medicaments and biological substances; Z91.041 Radiographic dye allergy status; Z79.01 Long term (current) use of anticoagulants; Z79.4 Long term (current) use of insulin; Z79.82 Long term (current) use of aspirin; Z86.73 Personal history of transient ischemic attack (TIA), and cerebral infarction without residual deficits
CPT/HCPCS: 36600; 71045; 71250; 80053; 81003; 82803; 82948; 83735; 83880; 84484; 85025; 85027; 85610; 85730; 93005; 94640; 94640 76; 94799; 99202; 99281; 99285; G0378; J1815; J1940

== ENCOUNTER 2017-08-28 20:08 | Inpatient (IN) | payer OTHER ==
[~2017-08-28] VITALS: Ht 182.9 cm; Wt 138.9 kg
[~2017-08-28 20:08] MED LIST changes: +LYRICA225 MG PO; +METOLAZONE2.5 MG PO
[2017-08-28 21:08] LABS: BASOPHIL (%) 1.1 % (0-1); BASOPHIL COUNT 0.1 K/uL (0-0.1); EOSINOPHIL (%) 6.9 % (0-5); EOSINOPHIL COUNT 0.7 K/uL (0-0.3); IMMATURE GRANULOCYTE (%) 0.9 % (0.0-0.7); LYMPHOCYTE (%) 9.5 % (15-42); MCHC 31.8 G/DL (30.0-36.0); MONOCYTE (%) 9.3 % (3-12); NEUTROPHIL (%) 72.3 % (45-76); NEUTROPHIL COUNT 7.6 K/uL (1.8-6.4); PLATELET COUNT 169 K/uL (156-360); RBC DIS.WIDTH-CV 15.3 % (11.8-14.6); RBC DIS.WIDTH-SD 50.8 % (39-53); RED BLOOD COUNT 3.73 M/uL (4.00-5.50); WHITE BLOOD COUNT 10.4 K/uL (4.1-10.2)
[2017-08-28 21:09] LABS: HEMOGLOBIN 10.8 G/DL (12.5-16.6); MCV 91.2 FL (86-99)
[2017-08-28 21:17] LABS: ALBUMIN 3.5 g/dL (3.2-4.8); CHLORIDE 95 mEq/L (99-109); POTASSIUM 3.8 mEq/L (3.7-5.4); SODIUM 140 mEq/L (136-147)
[2017-08-28 21:19] LABS: GLUCOSE 267 mg/dL (70-99); TOTAL PROTEIN 7.6 g/dL (6.4-8.3)
[2017-08-28 21:21] LABS: TOTAL BILIRUBIN 0.6 mg/dL (0.0-1.0)
[2017-08-28 21:23] LABS: ALKALINE PHOSPHATASE 109 IU/L (3-129); CREATININE 1.2 mg/dL (0.6-1.3); GFR ESTIMATE (CALCULATED) > 59 mL/min/ (58.99-99999)
[2017-08-28 21:24] LABS: UREA NITROGEN (BUN) 20 mg/dL (9-23)
[2017-08-28 21:25] LABS: AST (GOT) 26 IU/L (2-34)
[2017-08-28 21:26] LABS: ALT (GPT) 15 IU/L (3-49)
[2017-08-28 21:29] LABS: TROP-I INTERPRETATION NEGATIVE; TROPONIN-I 0.02 ng/mL (0.0-0.30)
[2017-08-28] MEDS ORDERED: ZOLOFT50 MG PO (22:20)
[2017-08-28] MEDS ORDERED: EXCEDRIN MIGRA1 EAC3 PO (22:20)
[2017-08-29 02:19] LABS: TROP-I INTERPRETATION NEGATIVE; TROPONIN-I 0.02 ng/mL (0.0-0.30)
[2017-08-29 03:00] VITALS: BP 109/53
[2017-08-29 07:37] VITALS: BP 116/57
[2017-08-29 09:02] LABS: BASOPHIL (%) 1.1 % (0-1); BASOPHIL COUNT 0.1 K/uL (0-0.1); EOSINOPHIL (%) 8.2 % (0-5); EOSINOPHIL COUNT 0.9 K/uL (0-0.3); HEMATOCRIT 37.3 % (38.0-50.0); HEMOGLOBIN 11.6 G/DL (12.5-16.6); IMMATURE GRANULOCYTE (%) 0.6 % (0.0-0.7); LYMPHOCYTE (%) 9.7 % (15-42); LYMPHOCYTE COUNT 1.1 K/uL (1.0-2.8); MCH 28.4 PG (29.0-34.0); MCHC 31.1 G/DL (30.0-36.0); MCV 91.2 FL (86-99); MONOCYTE COUNT 0.9 K/uL (0-0.8); NEUTROPHIL (%) 72.4 % (45-76); NEUTROPHIL COUNT 7.9 K/uL (1.8-6.4); PLATELET COUNT 207 K/uL (156-360); RBC DIS.WIDTH-SD 50.2 % (39-53); RED BLOOD COUNT 4.09 M/uL (4.00-5.50); WHITE BLOOD COUNT 10.8 K/uL (4.1-10.2)
[2017-08-29 09:25] LABS: CHLORIDE 90 MEQ/L (99-109); GFR ESTIMATE (CALCULATED) > 59 mL/min/ (58.99-99999); GLUCOSE 266 mg/dL (70-99); MAGNESIUM 1.7 mg/dl (1.3-2.7); POTASSIUM 3.7 MEQ/L (3.7-5.4); SODIUM 135 MEQ/L (136-147); UREA NITROGEN (BUN) 18 mg/dL (9-23)
[2017-08-29 11:31] VITALS: BP 129/60
[2017-08-29 15:50] VITALS: BP 148/65
[2017-08-29 20:41] VITALS: BP 129/65
[2017-08-30 00:28] VITALS: BP 124/60
[2017-08-30 04:15] VITALS: BP 140/65
[2017-08-30 06:04] LABS: HEMATOCRIT 35.6 % (38.0-50.0); HEMOGLOBIN 11.3 G/DL (12.5-16.6); MCH 28.8 PG (29.0-34.0); MCHC 31.7 G/DL (30.0-36.0); MCV 90.6 FL (86-99); PLATELET COUNT 178 K/uL (156-360); RBC DIS.WIDTH-CV 14.9 % (11.8-14.6); RBC DIS.WIDTH-SD 49.4 % (39-53); RED BLOOD COUNT 3.93 M/uL (4.00-5.50); WHITE BLOOD COUNT 10.6 K/uL (4.1-10.2)
[2017-08-30 06:40] LABS: CHLORIDE 92 MEQ/L (99-109); GFR ESTIMATE (CALCULATED) > 59 mL/min/ (58.99-99999); GLUCOSE 170 mg/dL (70-99); MAGNESIUM 1.7 mg/dl (1.3-2.7); POTASSIUM 3.6 MEQ/L (3.7-5.4); SODIUM 138 MEQ/L (136-147); UREA NITROGEN (BUN) 17 mg/dL (9-23)
[2017-08-30 09:03] VITALS: BP 133/67
[2017-08-30 16:31] VITALS: BP 132/62
[2017-08-30 19:23] VITALS: BP 131/60
[2017-08-30 23:43] VITALS: BP 124/58
[2017-08-31 04:14] VITALS: BP 121/64
[2017-08-31 06:32] LABS: BASOPHIL (%) 1.3 % (0-1); BASOPHIL COUNT 0.1 K/uL (0-0.1); EOSINOPHIL (%) 8.7 % (0-5); HEMATOCRIT 37.7 % (38.0-50.0); HEMOGLOBIN 11.8 G/DL (12.5-16.6); IMMATURE GRANULOCYTE (%) 0.6 % (0.0-0.7); LYMPHOCYTE (%) 10.3 % (15-42); LYMPHOCYTE COUNT 1.2 K/uL (1.0-2.8); MCH 28.1 PG (29.0-34.0); MCHC 31.3 G/DL (30.0-36.0); MCV 89.8 FL (86-99); MONOCYTE (%) 8.4 % (3-12); MONOCYTE COUNT 0.9 K/uL (0-0.8); NEUTROPHIL (%) 70.7 % (45-76); NEUTROPHIL COUNT 7.9 K/uL (1.8-6.4); PLATELET COUNT 191 K/uL (156-360); RBC DIS.WIDTH-CV 14.7 % (11.8-14.6); RBC DIS.WIDTH-SD 48.5 % (39-53); WHITE BLOOD COUNT 11.1 K/uL (4.1-10.2)
[2017-08-31 07:00] LABS: CHLORIDE 93 MEQ/L (99-109); GFR ESTIMATE (CALCULATED) > 59 mL/min/ (58.99-99999); MAGNESIUM 1.9 mg/dl (1.3-2.7); POTASSIUM 3.5 MEQ/L (3.7-5.4); SODIUM 138 MEQ/L (136-147); UREA NITROGEN (BUN) 17 mg/dL (9-23)
[2017-08-31 07:03] LABS: GLUCOSE 87 mg/dL (70-99)
[2017-08-31 08:12] VITALS: BP 118/58
[2017-08-31 11:22] VITALS: BP 133/63
[2017-08-31 15:57] VITALS: BP 141/64
[2017-08-31 19:39] VITALS: BP 128/64
[2017-09-01] VITALS: BP 148/81
[2017-09-01 04:00] VITALS: BP 141/73
[2017-09-01 08:41] VITALS: BP 124/66
[2017-09-01 11:04] LABS: CHLORIDE 92 MEQ/L (99-109); GFR ESTIMATE (CALCULATED) > 59 mL/min/ (58.99-99999); GLUCOSE 74 mg/dL (70-99); SODIUM 139 MEQ/L (136-147); UREA NITROGEN (BUN) 18 mg/dL (9-23)
[2017-09-01 11:05] LABS: CARBON DIOXIDE (BICARBONATE) > 40.0 MEQ/L (20-31); POTASSIUM 4.9 MEQ/L (3.7-5.4)
[2017-09-01 12:42] VITALS: BP 123/61
== END 2017-09-01 13:34 | disposition home health service (06) | DRG 291 ==
LOC: EME → EDBD 20:08 → EME 20:08 → 5SOUTH 08-29 00:07 → EDOF 08-29 00:07 → ENRESERV 08-29 00:17 → 5SOUTH 08-29 02:34
PROVIDERS: Emergency Medicine; Hospitalist; Physician Assistant
DX: I50.33 Acute on chronic diastolic (congestive) heart failure (principal); J96.20 Acute and chronic respiratory failure, unspecified whether with hypoxia or hypercapnia; Z99.81 Dependence on supplemental oxygen; I48.0 Paroxysmal atrial fibrillation; L03.116 Cellulitis of left lower limb; J44.0 Chronic obstructive pulmonary disease with (acute) lower respiratory infection; G47.33 Obstructive sleep apnea (adult) (pediatric); E11.9 Type 2 diabetes mellitus without complications; E66.01 Morbid (severe) obesity due to excess calories; Z68.41 Body mass index [BMI] 40.0-44.9, adult; I10 Essential (primary) hypertension; K75.9 Inflammatory liver disease, unspecified; Z91.19 Patient's noncompliance with other medical treatment and regimen; E78.5 Hyperlipidemia, unspecified; I27.20 Pulmonary hypertension, unspecified; I34.0 Nonrheumatic mitral (valve) insufficiency; I89.0 Lymphedema, not elsewhere classified; Z79.4 Long term (current) use of insulin; K21.9 Gastro-esophageal reflux disease without esophagitis; M19.90 Unspecified osteoarthritis, unspecified site; D50.9 Iron deficiency anemia, unspecified; Z79.01 Long term (current) use of anticoagulants; Z79.82 Long term (current) use of aspirin
CPT/HCPCS: 71046; 80048; 80053; 82948; 83735; 83880; 84484; 85025; 85027; 93005; 93306; 93970; 94640; 94640 76; 94799; 99281; 99285; J0690; J1815; J1940

== ENCOUNTER 2017-11-06 23:18 | Emergency (ER) | payer OTHER ==
[~2017-11-06] VITALS: Ht 180.3 cm; Wt 157.7 kg
[~2017-11-06 23:18] MED LIST changes: +EXCEDRIN MIGRA1 EAC3 PO; +ZOLOFT50 MG PO
[2017-11-07 00:04] LABS: BASOPHIL (%) 1.1 % (0-1); BASOPHIL COUNT 0.1 K/uL (0-0.1); EOSINOPHIL (%) 6.5 % (0-5); EOSINOPHIL COUNT 0.6 K/uL (0-0.3); HEMATOCRIT 34.8 % (38.0-50.0); IMMATURE GRANULOCYTE (%) 0.3 % (0.0-0.7); LYMPHOCYTE (%) 12.4 % (15-42); LYMPHOCYTE COUNT 1.2 K/uL (1.0-2.8); MCH 29.4 PG (29.0-34.0); MCHC 31.6 G/DL (30.0-36.0); MONOCYTE (%) 11.3 % (3-12); MONOCYTE COUNT 1.1 K/uL (0-0.8); NEUTROPHIL (%) 68.4 % (45-76); NEUTROPHIL COUNT 6.3 K/uL (1.8-6.4); PLATELET COUNT 138 K/uL (156-360); RBC DIS.WIDTH-CV 15.6 % (11.8-14.6); RBC DIS.WIDTH-SD 53.1 % (39-53); RED BLOOD COUNT 3.74 M/uL (4.00-5.50); WHITE BLOOD COUNT 9.3 K/uL (4.1-10.2)
[2017-11-07 00:13] LABS: INTER. NORMALIZED RATIO 1.6
[2017-11-07 00:15] LABS: PTT 34.9 SEC (25-37)
[2017-11-07 00:23] LABS: ALBUMIN 3.5 G/DL (3.2-4.8); CHLORIDE 99 MEQ/L (99-109); DIRECT BILIRUBIN 0.3 mg/dL (0.0-0.3); SODIUM 138 MEQ/L (136-147); TOTAL BILIRUBIN 0.7 MG/DL (0.0-1.0)
[2017-11-07 00:27] LABS: TROP-I INTERPRETATION NEGATIVE; TROPONIN-I 0.01 ng/mL (0.0-0.30)
[2017-11-07 00:29] LABS: ALKALINE PHOSPHATASE 74 IU/L (3-129); ALT (GPT) 10 IU/L (3-49); AST (GOT) 18 IU/L (2-34); GFR ESTIMATE (CALCULATED) > 59 mL/min/ (58.99-99999); GLUCOSE 166 mg/dL (70-99); LIPASE 13 U/L (1.0-51.0); UREA NITROGEN (BUN) 14 mg/dL (9-23)
[2017-11-07 02:56] VITALS: BP 118/61
== END 2017-11-07 02:59 | disposition home or self-care (01) ==
LOC: EME → EDBD 23:18 → EME 23:18
PROVIDERS: Emergency Medicine
PROC: 5A2204Z Restoration of Cardiac Rhythm, Single (ICD-10-PCS; principal; 2017-11-06)
DX: R00.2 Palpitations (principal); I48.2 Chronic atrial fibrillation; I45.10 Unspecified right bundle-branch block; R94.31 Abnormal electrocardiogram [ECG] [EKG]; R91.8 Other nonspecific abnormal finding of lung field; J44.9 Chronic obstructive pulmonary disease, unspecified; E11.9 Type 2 diabetes mellitus without complications; I10 Essential (primary) hypertension; K21.9 Gastro-esophageal reflux disease without esophagitis; E78.5 Hyperlipidemia, unspecified; I25.10 Atherosclerotic heart disease of native coronary artery without angina pectoris; I25.2 Old myocardial infarction; G47.30 Sleep apnea, unspecified; G43.909 Migraine, unspecified, not intractable, without status migrainosus; F32.9 Major depressive disorder, single episode, unspecified; F41.9 Anxiety disorder, unspecified; Z79.82 Long term (current) use of aspirin; Z79.4 Long term (current) use of insulin; Z79.891 Long term (current) use of opiate analgesic; Z79.01 Long term (current) use of anticoagulants; Z99.81 Dependence on supplemental oxygen; Z87.891 Personal history of nicotine dependence; Z86.79 Personal history of other diseases of the circulatory system; Z92.89 Personal history of other medical treatment; Z86.73 Personal history of transient ischemic attack (TIA), and cerebral infarction without residual deficits; Z91.041 Radiographic dye allergy status; Z88.8 Allergy status to other drugs, medicaments and biological substances
CPT/HCPCS: 71046; 80048; 80076; 83605; 83690; 83880; 84484; 85025; 85610; 85730; 93005; 99281; 99285; J2250; J3010; J7030

== ENCOUNTER 2017-11-10 20:07 | Observation (INO) | payer OTHER ==
[~2017-11-10] VITALS: Ht 180.3 cm; Wt 158.8 kg
[~2017-11-10 20:07] MED LIST changes: -LYRICA225 MG PO; -METOLAZONE2.5 MG PO; +METOLAZONE5 MG PO; +POTASSIUM CHLO20 ME1 PO
[2017-11-10 20:26] LABS: HEMATOCRIT 37.5 % (38.0-50.0); HEMOGLOBIN 11.6 G/DL (12.5-16.6); MCH 29.3 PG (29.0-34.0); MCHC 30.9 G/DL (30.0-36.0); MCV 94.7 FL (86-99); PLATELET COUNT 145 K/uL (156-360); RBC DIS.WIDTH-CV 15.5 % (11.8-14.6); RBC DIS.WIDTH-SD 54.4 % (39-53); RED BLOOD COUNT 3.96 M/uL (4.00-5.50); WHITE BLOOD COUNT 10.2 K/uL (4.1-10.2)
[2017-11-10 20:39] LABS: CHLORIDE 102 mEq/L (99-109); SODIUM 139 mEq/L (136-147)
[2017-11-10 20:41] LABS: GLUCOSE 120 mg/dL (70-99)
[2017-11-10 20:45] LABS: CREATININE 1.2 mg/dL (0.6-1.3); GFR ESTIMATE (CALCULATED) > 59 mL/min/ (58.99-99999)
[2017-11-10 20:46] LABS: UREA NITROGEN (BUN) 11 mg/dL (9-23)
[2017-11-10 20:51] LABS: TROP-I INTERPRETATION NEGATIVE; TROPONIN-I 0.02 ng/mL (0.0-0.30)
[2017-11-10] MEDS ORDERED: CARDIZEM30 MG PO (22:46)
[2017-11-11] MEDS ORDERED: LYRICA150 MG PO (00:13)
[2017-11-11] MEDS ORDERED: ADVAIR HFA120 INHALA IH (00:14)
[2017-11-11] MEDS ORDERED: NARCAN4 MG NS (00:15)
[2017-11-11] MEDS ORDERED: BUMETANIDE2 MG PO (00:15)
[2017-11-11 02:06] VITALS: BP 139/71
[2017-11-11 03:19] LABS: HEMATOCRIT 34.8 % (38.0-50.0); HEMOGLOBIN 11.1 G/DL (12.5-16.6); MCH 29.7 PG (29.0-34.0); MCHC 31.9 G/DL (30.0-36.0); PLATELET COUNT 122 K/uL (156-360); RBC DIS.WIDTH-CV 15.5 % (11.8-14.6); RBC DIS.WIDTH-SD 53.3 % (39-53); RED BLOOD COUNT 3.74 M/uL (4.00-5.50)
[2017-11-11 03:24] LABS: CHLORIDE 101 mEq/L (99-109); POTASSIUM 4.3 mEq/L (3.7-5.4); SODIUM 139 mEq/L (136-147)
[2017-11-11 03:26] LABS: GLUCOSE 113 mg/dL (70-99)
[2017-11-11 03:30] LABS: CREATININE 1.1 mg/dL (0.6-1.3); GFR ESTIMATE (CALCULATED) > 59 mL/min/ (58.99-99999); UREA NITROGEN (BUN) 12 mg/dL (9-23)
[2017-11-11 03:41] LABS: TROP-I INTERPRETATION NEGATIVE; TROPONIN-I 0.02 ng/mL (0.0-0.30)
[2017-11-11 07:10] VITALS: BP 126/62
[2017-11-11 09:13] LABS: TROP-I INTERPRETATION NEGATIVE; TROPONIN-I 0.03 ng/mL (0.0-0.30)
[2017-11-11 11:36] VITALS: BP 115/55
[2017-11-11 14:00] VITALS: BP 128/65
[2017-11-11 15:27] VITALS: BP 133/72
[2017-11-11 19:54] VITALS: BP 138/78
[2017-11-12 00:12] VITALS: BP 144/69
[2017-11-12 03:43] VITALS: BP 141/73
[2017-11-12 08:08] VITALS: BP 138/77
[2017-11-12] MEDS ORDERED: METOLAZONE5 MG PO (11:41)
[2017-11-12] MEDS ORDERED: KEFLEX500 MG PO (11:44)
[2017-11-12 11:52] VITALS: BP 139/86
== END 2017-11-12 13:34 | disposition home or self-care (01) ==
LOC: EME → EDBD 20:07 → EDOF 23:54 → 4EAST 23:54 → ENRESERV 11-11 08:34 → 4EAST 11-11 13:30 → 4SOUTH 11-11 13:35
PROVIDERS: Hospitalist; Student in an Organized Health Care Education/Training Program
DX: I48.0 Paroxysmal atrial fibrillation (principal); I11.0 Hypertensive heart disease with heart failure; I50.33 Acute on chronic diastolic (congestive) heart failure; J44.9 Chronic obstructive pulmonary disease, unspecified; J96.11 Chronic respiratory failure with hypoxia; Z99.81 Dependence on supplemental oxygen; G47.33 Obstructive sleep apnea (adult) (pediatric); E66.01 Morbid (severe) obesity due to excess calories; Z68.42 Body mass index [BMI] 45.0-49.9, adult; E11.8 Type 2 diabetes mellitus with unspecified complications; I89.0 Lymphedema, not elsewhere classified; E78.5 Hyperlipidemia, unspecified; L03.116 Cellulitis of left lower limb; L03.115 Cellulitis of right lower limb; Z79.01 Long term (current) use of anticoagulants; Z87.891 Personal history of nicotine dependence; Z82.5 Family history of asthma and other chronic lower respiratory diseases; Z80.0 Family history of malignant neoplasm of digestive organs; Z88.8 Allergy status to other drugs, medicaments and biological substances
CPT/HCPCS: 70450; 71045; 80048; 82948; 83605; 83880; 84484; 85027; 87040; 93005; 94660; 94799; 99281; 99285; G0378; J0690; J1815; J1940

== ENCOUNTER 2017-11-19 23:26 | Observation (INO) | payer OTHER ==
[~2017-11-19] VITALS: Ht 180.3 cm; Wt 154.0 kg
[~2017-11-19 23:26] MED LIST changes: +BUMETANIDE2 MG PO; +NARCAN4 MG NS
[2017-11-19 23:53] LABS: HEMOGLOBIN 12.5 G/DL (12.5-16.6); MCH 28.9 PG (29.0-34.0); MCHC 30.5 G/DL (30.0-36.0); MCV 94.9 FL (86-99); RBC DIS.WIDTH-SD 52.2 % (39-53); RED BLOOD COUNT 4.32 M/uL (4.00-5.50); WHITE BLOOD COUNT 14.1 K/uL (4.1-10.2)
[2017-11-20] LABS: CHLORIDE 99 mEq/L (99-109); INTER. NORMALIZED RATIO 1.3; POTASSIUM 4.2 mEq/L (3.7-5.4); SODIUM 139 mEq/L (136-147)
[2017-11-20 00:02] LABS: GLUCOSE 357 mg/dL (70-99)
[2017-11-20 00:03] LABS: PTT 34.9 SEC (25-37)
[2017-11-20 00:06] LABS: CREATININE 1.3 mg/dL (0.6-1.3); GFR ESTIMATE (CALCULATED) > 59 mL/min/ (58.99-99999); PLATELET COUNT 181 K/uL (156-360)
[2017-11-20 00:07] LABS: UREA NITROGEN (BUN) 14 mg/dL (9-23)
[2017-11-20 00:17] LABS: TROP-I INTERPRETATION NEGATIVE; TROPONIN-I 0.02 ng/mL (0.0-0.30)
[2017-11-20 05:10] VITALS: BP 171/86
[2017-11-20 05:59] LABS: TROP-I INTERPRETATION NEGATIVE; TROPONIN-I 0.02 ng/mL (0.0-0.30)
[2017-11-20 07:47] VITALS: BP 146/73
[2017-11-20 08:35] LABS: HEMOGLOBIN 11.8 G/DL (12.5-16.6); MCH 29.6 PG (29.0-34.0); MCHC 31.1 G/DL (30.0-36.0); MCV 95.5 FL (86-99); PLATELET COUNT 141 K/uL (156-360); RBC DIS.WIDTH-CV 15.1 % (11.8-14.6); RBC DIS.WIDTH-SD 53.5 % (39-53); RED BLOOD COUNT 3.98 M/uL (4.00-5.50); WHITE BLOOD COUNT 15.4 K/uL (4.1-10.2)
[2017-11-20 11:08] LABS: TROP-I INTERPRETATION NEGATIVE; TROPONIN-I 0.02 ng/mL (0.0-0.30)
[2017-11-20 12:05] VITALS: BP 137/87
[2017-11-20] MEDS ORDERED: METOLAZONE5 MG PO (12:16)
[2017-11-20 16:20] VITALS: BP 141/73
[2017-11-20 19:56] VITALS: BP 145/78
[2017-11-20 23:55] VITALS: BP 140/82
[2017-11-21 03:48] VITALS: BP 140/77
[2017-11-21 05:30] LABS: BASOPHIL (%) 0.9 % (0-1); BASOPHIL COUNT 0.1 K/uL (0-0.1); EOSINOPHIL (%) 3.9 % (0-5); EOSINOPHIL COUNT 0.5 K/uL (0-0.3); HEMATOCRIT 34.3 % (38.0-50.0); HEMOGLOBIN 10.8 G/DL (12.5-16.6); IMMATURE GRANULOCYTE (%) 0.3 % (0.0-0.7); LYMPHOCYTE (%) 10.8 % (15-42); LYMPHOCYTE COUNT 1.2 K/uL (1.0-2.8); MCH 28.9 PG (29.0-34.0); MCHC 31.5 G/DL (30.0-36.0); MCV 91.7 FL (86-99); MONOCYTE (%) 10.6 % (3-12); MONOCYTE COUNT 1.2 K/uL (0-0.8); NEUTROPHIL (%) 73.5 % (45-76); NEUTROPHIL COUNT 8.5 K/uL (1.8-6.4); PLATELET COUNT 135 K/uL (156-360); RBC DIS.WIDTH-CV 14.9 % (11.8-14.6); RBC DIS.WIDTH-SD 50.1 % (39-53); RED BLOOD COUNT 3.74 M/uL (4.00-5.50); WHITE BLOOD COUNT 11.5 K/uL (4.1-10.2)
[2017-11-21 05:51] LABS: CHLORIDE 91 MEQ/L (99-109); CREATININE 1.2 MG/DL (0.6-1.3); GFR ESTIMATE (CALCULATED) > 59 mL/min/ (58.99-99999); GLUCOSE 213 mg/dL (70-99); HDL CHOLESTEROL 44 MG/DL (Desirable>=40); LDL CHOLESTEROL 62 mg/dL (Desirable<100); NON-HDL CHOLESTEROL 71 mg/dL (Desirable<160); SODIUM 133 MEQ/L (136-147); TOTAL CHOLESTEROL 115 mg/dL (Desirable<200); TRIGLYCERIDES 45 MG/DL (Normal: <150)
[2017-11-21 05:52] LABS: POTASSIUM 3.3 MEQ/L (3.7-5.4); UREA NITROGEN (BUN) 24 mg/dL (9-23)
[2017-11-21 07:37] VITALS: BP 119/62
[2017-11-21 07:58] LABS: MAGNESIUM 1.7 mg/dl (1.3-2.7)
[2017-11-21 08:10] LABS: THYROTROPIN (TSH) 0.92 MIU/L (0.4-5.5)
[2017-11-21] MEDS ORDERED: CARDIZEM CD,CA180 MG PO (10:43)
[2017-11-21] MEDS ORDERED: LISINOPRIL5 MG PO (10:43)
== END 2017-11-21 11:48 | disposition home or self-care (01) ==
LOC: EME → EDBD 23:26 → EME 23:26 → EDOF 11-20 03:57 → ENRESERV 11-20 03:58 → 4SOUTH 11-20 04:56
PROVIDERS: Internal Medicine; Internal Medicine Interventional Cardiology; Physician Assistant
DX: R07.9 Chest pain, unspecified (principal); I11.0 Hypertensive heart disease with heart failure; I50.33 Acute on chronic diastolic (congestive) heart failure; E66.2 Morbid (severe) obesity with alveolar hypoventilation; Z68.42 Body mass index [BMI] 45.0-49.9, adult; I26.99 Other pulmonary embolism without acute cor pulmonale; I48.2 Chronic atrial fibrillation; E11.65 Type 2 diabetes mellitus with hyperglycemia; Z79.4 Long term (current) use of insulin; E78.5 Hyperlipidemia, unspecified; I89.0 Lymphedema, not elsewhere classified; Z79.01 Long term (current) use of anticoagulants; F32.9 Major depressive disorder, single episode, unspecified; F41.9 Anxiety disorder, unspecified; D64.9 Anemia, unspecified; K21.9 Gastro-esophageal reflux disease without esophagitis; Z87.891 Personal history of nicotine dependence; J44.9 Chronic obstructive pulmonary disease, unspecified; J96.11 Chronic respiratory failure with hypoxia; Z99.81 Dependence on supplemental oxygen; G89.29 Other chronic pain; Z82.5 Family history of asthma and other chronic lower respiratory diseases; Z80.0 Family history of malignant neoplasm of digestive organs; Z88.8 Allergy status to other drugs, medicaments and biological substances; Z91.041 Radiographic dye allergy status
CPT/HCPCS: 71046; 71275; 80048; 80061; 81003; 82948; 83735; 84443; 84484; 85025; 85027; 85379; 85610; 85730; 87641; 93005; 94640; 94760; 94799; 99281; 99285; G0378; G8978 GP CH; G8979 GP CH; G8980 GP CH; J1815; J3010